=== PATIENT | male | born 1940 | race Caucasian/White ===

== ENCOUNTER → 2019-08-05 14:04 | Outpatient (BNVA) | payer MEDICARE, SELFPAY | PROVIDERS: Family Provider Family Medicine; PCP Family Medicine; Visit Provider Family Medicine | DX: J06.9 Acute upper respiratory infection, unspecified (principal); J30.9 Allergic rhinitis, unspecified | CPT/HCPCS: 87804 ==

== ENCOUNTER → 2019-08-11 15:08 | Outpatient (BNVA) | payer MEDICARE, SELFPAY | PROVIDERS: Family Provider Family Medicine; PCP Family Medicine; Visit Provider Nurse Practitioner Family | DX: R06.02 Shortness of breath (principal); J90 Pleural effusion, not elsewhere classified; I50.9 Heart failure, unspecified; I51.7 Cardiomegaly | CPT/HCPCS: 71046; 80053; 82550; 83880; 84484; 85025 ==

== ENCOUNTER 2019-08-12 18:15 | Inpatient (IN) | payer MEDICARE, SELFPAY ==
[2019-08-12 19:00] VITALS: BP 108/58; PULSE 90; RESP 15; TEMP 36.7; O2SAT 95; BMI 22.4
--- NOTE | 2019-08-12 19:29 | ECG_ITS ---
Measurements Intervals [place] Rate: 81 P: 50 GA: 192 QRS: 8 QRSD: 98 T: 94 QT: 375 QTc: 438 SINUS RHYTHM POSSIBLE LEFT ATRIAL ENLARGEMENT [-0.1mV P WAVE IN V1/V2] SEPTAL MYOCARDIAL INFARCTION , OF INDETERMINATE AGE [40+ ms Q WAVE IN V1/V2] No previous ECG available for comparison Electronically Signed On 08-13-2019 14:12:16 MARKETING SUMMER INTERN by Mil Kee M.D. [id number]
--- NOTE | 2019-08-12 19:29 | XR_ITS ---
WS: [id number] XR chest 1V portable [id number] REASON FOR EXAM: short of breath FINDINGS: There is right pleural effusion similar to the exam of August 11, 2019. The pulmonary niranjan ma has resolved. The heart remains mildly enlarged. The hilum and apices are normal. XR/XR chest 1V portable [id number] IMPRESSION: Resolved pulmonary edema Residual right pleural effusion.
[2019-08-12 20:00] LABS: Basophils % 0.2 %; Eosinophils # 0.1 10^3/uL (0.0-0.8); Eosinophils % 1.4 %; Hematocrit 42.3 % (42.0-52.0); Lymphocytes # 1.5 10^3/uL (0.8-4.8); Mean Corpuscular HGB Conc 30.7 g/dL (30.0-36.0); Mean Corpuscular Hemoglobin 25.8 pg (28.0-34.0); Mean Corpuscular Volume 83.9 fL (80-94); Mean Platelet Volume 9.7 fL (7.4-10.4); Monocytes # 1.2 10^3/uL (0.2-0.9); Monocytes % 11.7 %; Neutrophils # 7.1 10^3/uL (1.8-7.7); Neutrophils % 71.1 %; Nucleated Red Blood Cells % 0 %; Platelet Count 417 10^3/cmm (130-400); Red Blood Count 5.04 10^6/uL (4.1-5.3); Red Cell Distribution Width 15.3 % (12.1-15.1)
--- NOTE | 2019-08-12 20:15 | ED_ITS ---
Entered by Zandra Cordoba, acting as scribe for Aug 12, 2019 18:15 HPI - Recheck/Abnormal Lab/Rx General: Chief Complaint: Recheck/Abnormal Lab/Rx Stated Complaint: abnormal labs Time Seen by Provider: 08/12/19 20:12 Source: patient and family Mode of arrival: ambulatory History of Present Illness: HPI narrative: 79 y/o male presents to the ED for lab recheck. Family states he was having increased LE swelling and saw a provider in [place] who put him on a water pill. He was advised to return if his symptoms did not improve. He went back yesterday and was placed on a different water pill and did some lab work. He also had a chest xray which showed some cardiomegaly. Pt states he has had intermittent SOB, depending on his level of activity, but is unable to lay flat, at all. Family states they were told his trop level was elevated, as well. MD complaint: other (lab recheck/follow-up) Initial visit (ago): day(s) Initial visit for: other (water retension/SOB) Associated symptoms: shortness of breath Review of Systems General: Reports: other (negative unless marked) Const: Denies: fever, chills, body aches, fatigue, malaise or diaphoresis Eyes: Denies: change in vision or blurry vision ENMT: Denies: throat pain, painful swallowing, hoarseness, ear pain, ear discharge, Change in hearing or nasal discharge Resp: Denies: productive cough, non-productive cough, wheezing, coughing up blood or chest congestion GI: Denies: abdominal pain, nausea, vomiting, vomiting blood, coffee grounds in vomit, diarrhea, constipation, cramping, blood in stool or black tarry stool : Denies: flank pain, difficulty urinating, painful urination, urinary frequency, urinary urgency, decreased urine ouput, urinary incontinence or blood in urine Skin/Breast: Denies: rash, skin tenderness or yellow skin Neuro: Denies: headache, numbness in extremities, weakness in extremities, changes in sensation, lack of coordination, difficulty walking, dizziness, vertigo or confusion Endo: Denies: excessive thirst, tired all the time, cold intolerance, excessive sweating, flushing or hot flashes Naveen/Lymph: Denies: easy bruising, easy bleeding, petechiae or enlarged lymph nodes All/Imm: Denies: hives, throat swelling, tongue swelling, facial swelling or acute wheezing PFSH ED PFSH: Medical History (Updated 08/13/19 @ 02:46 by Shelley Persaud) Diabetes mellitus Hyperlipidemia Hypertension Leg edema Social History Smoking and tobacco status: never smoked Physical Exam Const: COMMON NORMALS: no apparent distress, oriented x3, no limitations, healthy appearing and well nourished EXAM LIMITATIONS: no altered mental status GENERAL APPEARANCE: cooperative, well kempt and well developed ORIENTATION/CONSCIOUSNESS: Yes awake HENMT: COMMON NORMALS: normocephalic, head/scalp atraumatic, hearing grossly normal bilaterally, external ears normal, EAC's normal, external nose normal and moist oral mucous membranes HEAD & SCALP: normal to inspection, normocephalic and atraumatic FACE & SINUS: normal facial exam and face symmetric NOSE: external nose normal and nares normal EXTERNAL EAR: Yes external ears normal EXTERNAL AUDITORY CANAL: EAC's normal MOUTH: oral and palatal mucosa normal and tongue normal Eye: COMMON NORMALS: PERRL, EOMs intact bilaterally, conjunctivae normal and no scleral icterus GENERAL EYE: normal appearance of both eyes and normal light reflex CONJUNCTIVA: Yes conjunctivae normal SCLERA: sclerae normal CORNEA: Yes corneas normal PUPIL: Yes PERRL DIRECT OPHTHALMOSCOPY: Yes normal light reflex Neck/C-Spine: COMMON NORMALS: full ROM, no lymphadenopathy, supple, no meningeal signs and no JVD GENERAL: Yes normal visual inspection and Yes trachea midline CERVICAL SPINE: Yes cervical ROM normal Chest: COMMONS NORMALS: inspection of chest normal and palpation of chest normal Resp: COMMON NORMALS: normal respiratory effort, no retractions, no use of accessory muscles and clear to auscultation bilaterally EFFORT & INSPECTION: Yes able to speak in complete sentences AUSCULTATION: clear to auscultation bilaterally Cardio: COMMON NORMALS: no JVD, regular rate, regular rhythm, S1 normal heart sound, S2 normal heart sound, no gallops, no clicks, no murmurs and no rub JUGULAR VENOUS DISTENTION: no JVD RATE: regular rate RHYTHM: regular rhythm HEART SOUNDS: S1 normal and S2 normal GI: COMMON NORMALS: soft to palpation, non-tender, no hepatosplenomegaly and no masses INSPECTION: Yes normal to inspection PALPATION: Yes soft and Yes no hepatosplenomegaly : COMMON NORMALS: Yes no CVA tenderness BLADDER/KIDNEY EXAM: Yes no CVA tenderness Back/Pelvis: COMMON NORMALS: no CVA tenderness, thoracic and lumbar spine normal to inspection, no thoracic nor lumbar tenderness and thoraco-lumbar ROM normal Neuro: COMMON NORMALS: oriented x3, CN's II-XII intact bilaterally, moves all extremities, no focal motor deficits and no sensory deficits noted MENINGEAL SIGNS: Yes no meningeal signs Psych: COMMON NORMALS: mental status grossly normal, thought process normal, cooperative, affect normal, speech normal and activity/motor behavior normal APPEARANCE: Yes well kempt SPEECH: Yes normal speech THOUGHT PROCESS: normal thought process Skin: COMMON NORMALS: no rashes or lesions noted, skin turgor normal, no jaundice, no petechiae and no mottling GENERAL SKIN EXAM: no rashes or lesions noted and turgor normal Course Vital Signs: Vital signs: Vital Signs Temperature 98.5 F 08/13/19 00:00 Pulse Rate 84 08/13/19 00:00 Respiratory Rate 18 08/13/19 00:00 Blood Pressure 104/79 08/13/19 00:00 Pulse Oximetry 98 08/13/19 00:00 MDM - Recheck/Abnormal Lab/Rx MDM Narrative: Medical decision making narrative: Mr. Granger is a nice 79-year-old male who comes in with increased leg swelling and edema and shortness of breath with orthopnea. The symptoms are new over the past few days. Patient has not had this problem before. Appears as though he has new onset congestive heart failure and possibly an NSTEMI. The case was endorsed to Dr. Santizo and she is agreeable to admission. Lab Data: Attestation: I reviewed the patient's lab results. Labs: Lab Results 08/12/19 08/12/19 08/12/19 Range/Units 19:45 19:45 19:45 WBC 10.0 (4.0-10.0) 10^3/ uL RBC 5.04 (4.1-5.3) 10^6/u L Hgb 13.0 (11.7-16.6) g/dL Hct 42.3 (42.0-52.0) % MCV 83.9 (80-94) fL MCH 25.8 L (28.0-34.0) pg MCHC 30.7 (30.0-36.0) g/dL RDW 15.3 H (12.1-15.1) % Plt Count 417 H (130-400) 10^3/c mm MPV 9.7 (7.4-10.4) fL Neut % (Auto) 71.1 % Lymph % (Auto) 15.0 % [place] % (Auto) 11.7 % Eos % (Auto) 1.4 % Baso % (Auto) 0.2 % Neut # (Auto) 7.1 (1.8-7.7) 10^3/u L Lymph # (Auto) 1.5 (0.8-4.8) 10^3/u L [place] # (Auto) 1.2 H (0.2-0.9) 10^3/u L Eos # (Auto) 0.1 (0.0-0.8) 10^3/u L Baso # (Auto) 0.0 (0.0-0.1) 10^3/u L Nucleated RBC % (a uto) 0 % Nucleated RBCs # 0.0 /100WBC Sodium 132 L (136-145) mmol/L Potassium 5.4 H (3.5-5.1) mmol/L Chloride 96 L (98-107) mmol/L Carbon Dioxide 24 (22-29) mmol/L Anion Gap 17.4 (5-19) BUN 51 H (8-23) mg/dL Creatinine 2.1 H (0.7-1.2) mg/dL Glucose 198 H (65-115) mg/dL Calcium 9.9 (8.5-10.5) mg/dL Total Bilirubin 0.8 (0.15-1.2) mg/dL AST 36 (0-40) U/L ALT 26 (0-41) U/L Alkaline Phosphata se 71 (40-130) IU/L Troponin T Baselin e 127 H* (0-15) ng/mL NT-Pro-B Natriuret Pep 37184 H (0-450) pg/mL Total Protein 7.1 (6.6-8.7) g/dL Albumin 3.7 (3.5-5.2) g/dL Globulin 3.4 (1.3-4.6) g/dL Imaging Data^: CXR: Attestation: I personally reviewed and interpreted this imaging study as follows: My impression: Cardiomegaly with right-sided pleural effusion. EKG Data^: EKG 1: Attestation: I personally reviewed and interpreted this EKG as follows: EKG interpretation date: 08/12/19 EKG interpretation time: 20:52 Interpretation: Normal sinus rhythm at 81 beats a minute, normal axis, normal intervals, no blocks, Q waves anteriorly are, T wave inversions laterally with ST segment depression in V5 and V6. No old for comparison. Discharge Plan Discharge Patient Disposition: Admitted As Inpatient Admit Provider: Margret Santizo Discharge Date/Time: 08/13/19 00:15 Coding Level of Care Code ED Highway Maintenance Supervisor for Chg Fwd Exam Comprehensive The documentation recorded by the Adalid calderon Ashley, accurately reflects the service I personally performed and the decisions made by Cori gonsalves Eli N Aug 12, 2019 18:15
[2019-08-12 20:17] LABS: Alanine Aminotransferase 26 U/L (0-41); Albumin Level 3.7 g/dL (3.5-5.2); Alkaline Phosphatase 71 IU/L (40-130); Anion Gap 17.4 (5-19); Aspartate Amino Transferase 36 U/L (0-40); Blood Urea Nitrogen 51 mg/dL (8-23); Calcium 9.9 mg/dL (8.5-10.5); Carbon Dioxide 24 mmol/L (22-29); Chloride 96 mmol/L (98-107); Globulin 3.4 g/dL (1.3-4.6); Glucose 198 mg/dL (65-115); Potassium 5.4 mmol/L (3.5-5.1); Sodium 132 mmol/L (136-145); Total Bilirubin 0.8 mg/dL (0.15-1.2); Total Protein 7.1 g/dL (6.6-8.7)
[2019-08-12 20:22] LABS: Troponin(5th) Baseline 127 ng/mL (0-15)
--- NOTE | 2019-08-12 20:30 | PC.NURSE ---
Patient states he only becomes short of breath during exertion
[2019-08-12 20:49] LABS: NT Pro B Type Natriuretic Pept 40232 pg/mL (0-450)
--- NOTE | 2019-08-12 21:29 | ECG_ITS ---
Measurements Intervals [place] Rate: 84 P: 48 ME: 188 QRS: -10 QRSD: 97 T: 123 QT: 363 QTc: 432 SINUS RHYTHM LEFT ATRIAL ENLARGEMENT [-0.15mV P WAVE IN V1/V2] ANTEROSEPTAL MYOCARDIAL INFARCTION [40+ ms Q WAVE IN V1-V4], OF INDETERMINATE AGE WARNING: DATA QUALITY MAY AFFECT INTERPRETATION No previous ECG available for comparison Electronically Signed On 08-13-2019 14:14:30 APPRENTICE COOK by Mil Kee M.D. [id number]
--- NOTE | 2019-08-12 21:49 | PC.NURSE ---
EKG done at 2145 and shown to ER doctor
[2019-08-12 23:24] LABS: Troponin 5 2HR Delta 0.5 ABS# (0-10)
[2019-08-12 23:26] LABS: Troponin 5 2HR 127.5 ng/mL (0-15)
[2019-08-12 23:42] VITALS: BP 108/72; PULSE 86; RESP 18; O2SAT 96
[2019-08-13] VITALS (94 sets, daily range): BP systolic 101–117; BP diastolic 74–89; PULSE 24–101; RESP 16–32; TEMP 36.7–37; O2SAT 94–99
--- NOTE | 2019-08-13 00:13 | P.HP_ITS ---
Providers/Chief Complaint Admitting Physician: Margret Santizo MD Primary Care Provider: Julisa Chilel MD Chief Complaint: ELEVATED TROPONIN PER DERIC NEFF History of Present Illness Isaiah Granger is a 79 year old male with a past medical history of hypertension, diabetes, allergic rhinitis who has recently developed worsening lower extremity swelling over the past week. Patient reports that over the past 2 to 3 months he has been experiencing generalized weakness, feeling weaker than usual and in has been developing poor exercise capacity together with lower extremity swelling. Over the past week his lower extremity swelling increased significantly in size. He also noticed a worsening in his dyspnea. While at a baseline [place], at this present time he he reports only being able to ambulate in a small hallway before feeling short of breath. His daughters at bedside also have noticed him to become more winded on attempting to talk in long sentences. Family has also noticed him sleeping in a recliner on more than one occasion over the past 1 week. It is hard to get an exact history from the patient, however he states that this was more to elevate his legs rather than because of shortness of breath. He was recently evaluated in his primary care provider's office for the above symptoms. Initially he was started on a combination of lisinopril and hydrochlorothiazide last week on August 05. This was changed to Lasix 20 mg twice daily on the . Since starting these medications he had noticed an improvement in his lower extremity edema. As part of his work-up labs were drawn on the as an outpatient which showed an [place] [address] therefore he was referred to the emergency room. At this present time he denies any complaints of chest pain. He denies any episodes of chest pain in the past. He states that the onset of symptoms some 2 to 3 months ago all he remembers is having a URI with productive cough which has improved however still with some persistent cough. Diagnostics in the ER are notable for BUN 41, creatinine of 2.1(baseline of 1.8 from 05/2019), baseline troponin of 127, 2-hour troponin of 127.5 with a delta of 0.5, BNP 08237. EKG shows a sinus rhythm of 78 bpm without any acute ST-T wave changes. Chest x-ray with a right pleural effusion and mild congestive changes in the perihilar areas. He is currently saturating 98% on room air. Blood pressure is 104/79 with a heart rate of 84. He appears comfortable at time of exam. No past h/o CAD Review of Systems General: Reports: 10 or more systems reviewed and unremarkable except in HPI and below Const: Denies: fever, chills or body aches Eyes: Denies: change in vision, blurry vision or photophobia ENMT: Reports: hoarseness; Denies: throat pain, enlarged tonsils, painful swallowing or nasal congestion Card: Reports: edema, swelling of feet/ankles, shortness of breath on exertion and shortness of breath when lying down; Denies: chest pain, palpitations, irregular heart rhythm, lightheadedness or pre-syncope Resp: Reports: shortness of breath and non-productive cough; Denies: productive cough, wheezing, stridor, pain on inspiration, change in phlegm color, coughing up blood or chest congestion GI: Denies: abdominal pain, nausea, vomiting, vomiting blood, coffee grounds in vomit, difficulty swallowing, heartburn/indigestion, diarrhea, constipation, cramping, change in stool character, blood in stool or black tarry stool : Denies: flank pain, painful urination, urinary frequency, urinary urgency, urinary hesitancy or blood in urine Musc: Denies: neck pain, back pain, extremity pain, joint swelling, joint warmth or deformity Neuro: Denies: headache, numbness in extremities, weakness in extremities, changes in sensation, difficulty walking, frequent falls, dizziness, vertigo, behavioral changes, slurred speech or seizure-like activity Psych: Denies: anxiety, depression, suicidal ideation or homicidal ideation Endo: Denies: excessive urination, excessive thirst, tired all the time, cold intolerance or hot flashes Naveen/Lymph: Denies: easy bruising or easy bleeding Medications/Allergies Allergies Allergy/AdvReac Type Severity Reaction Status Date / Time No Known Allergies Allergy Verified 08/11/19 15:23 PFSH Acute PFSH: Medical History Diabetes mellitus Hyperlipidemia Hypertension Social History Smoking and tobacco status: never smoked Vitals/I&O/Wt Last Vital Signs Temp 98.0 F 08/12/19 19:00 Pulse 86 08/12/19 23:42 Resp 18 08/12/19 23:42 BP 108/72 08/12/19 23:42 Pulse Ox 96 08/12/19 23:42 Weight last 48 hrs Weight 70.76 kg Physical Exam Narrative: EXAM NARRATIVE: GEN: Awake, alert and oriented, no acute distress CVS: S1S2 N, disatolic murmur+ RS: CTA B/L except reduced air entry R infraaxillary area. Abd: Soft, nt/nd , bs+ DIRECTOR PACKAGING: no focal neuro deficits EXT: 2+ pitting edema B/L lower extremities Data : 08/13/19 01:30 08/13/19 01:30 A&P Assessment and plan (1) Hyperlipidemia: Status: Acute Code(s): E78.5 - Hyperlipidemia, unspecified (2) Diabetes mellitus: Status: Acute Code(s): E11.9 - Type 2 diabetes mellitus without complications (3) Hypertension: Status: Acute Code(s): I10 - Essential (primary) hypertension (4) Diabetes mellitus: Status: Acute Code(s): E11.9 - Type 2 diabetes mellitus without complications (5) Leg edema: Status: Acute Code(s): R60.0 - Localized edema Additional A&P Information Admit to [facility] 1. B/L lower extremity edema Given presentation with dyspnea, orthopnea, cough, rales, pulmonary congestion on chest x-ray, elevated troponins and BNP suspect heart failure of unclear chronicity-Per patient history symptoms were more subacute over the past 2 to 3 months with acute worsening over the past week. Start Lasix 40 mg IV daily, to be adjusted based on urine output creatinine and improvement in edema. Obtain echocardiogram to ascertain EF, systolic and diastolic function, valvular function. Troponins are elevated today however suspect this is more likely related to CHF. Patient has no current ongoing chest pain or acute ST-T wave changes to suggest acute coronary syndrome. LFTs are within normal range. Will obtain albumin with morning labs. Suspect cardiorenal syndrome to be the cause of worsening creatinine and less likely a primary renal abnormality. Will obtain UA for initial work-up. Patient denies any past history of known CAD however he does have significant risk factors by way of hypertension and diabetes mellitus. Currently on aspirin 81 mg daily as primary prevention. 2. Hypertension continue lisinopril 10 mg daily 3. Diabetes mellitus insulin sliding scale for now DVT ppx: lovenox Full code Attestations Medical Necessity Statement*: Anticipate greater than 2 midnight admission for the work-up and management of possible newly diagnosed CHF. Coding Level of Care Code Acute Software Packager for [facility] Fwd Diagnoses Hyperlipidemia E78.5 Diabetes mellitus E11.9 Hypertension I10 Diabetes mellitus E11.9 Leg edema R60.0
--- NOTE | 2019-08-13 00:50 | PC.NURSE ---
Received patient from the emergency room via wheelchair. Patient is alert and oriented to person, place, time, situation. Patient denies pain at this time. Family at the patient's bedside. Patient has pitting edema in the bilateral lower extremities. Pedal pulses palpable 3+ in bilateral lower extremities. business reporting developer completed per flow sheet. Call light within reach. Care Continued.
--- NOTE | 2019-08-13 01:29 | ECG_ITS ---
Measurements Intervals [place] Rate: 78 P: 50 AL: 187 QRS: -1 QRSD: 98 T: 117 QT: 391 QTc: 448 SINUS RHYTHM POSSIBLE LEFT ATRIAL ENLARGEMENT [-0.1mV P WAVE IN V1/V2] ANTEROSEPTAL MYOCARDIAL INFARCTION [40+ ms Q WAVE IN V1-V4], OF INDETERMINATE AGE No previous ECG available for comparison Electronically Signed On 08-13-2019 14:15:45 EXTRACTOR PULLER by Mil Kee M.D. [id number]
[2019-08-13 01:42] LABS: Basophils % 0.2 %; Eosinophils # 0.2 10^3/uL (0.0-0.8); Hematocrit 42.6 % (42.0-52.0); Hemoglobin 13.3 g/dL (11.7-16.6); Lymphocytes # 1.8 10^3/uL (0.8-4.8); Lymphocytes % 17.3 %; Mean Corpuscular HGB Conc 31.2 g/dL (30.0-36.0); Mean Corpuscular Hemoglobin 26.1 pg (28.0-34.0); Mean Corpuscular Volume 83.7 fL (80-94); Mean Platelet Volume 9.9 fL (7.4-10.4); Monocytes # 1.4 10^3/uL (0.2-0.9); Monocytes % 12.9 %; Neutrophils # 7.1 10^3/uL (1.8-7.7); Neutrophils % 67.1 %; Nucleated Red Blood Cells % 0 %; Platelet Count 407 10^3/cmm (130-400); Red Blood Count 5.09 10^6/uL (4.1-5.3); Red Cell Distribution Width 15.3 % (12.1-15.1); White Blood Count 10.6 10^3/uL (4.0-10.0)
[2019-08-13 01:56] LABS: Troponin 5 6HR 126.9 ng/mL (0-15); Troponin 5 6HR Delta -0.1 ng/L (0-12)
--- NOTE | 2019-08-13 02:34 | USCV_ITS ---
Isaiah Granger Age: 79 Gender: M : 1940 Exam Date: 08/13/2019 06:15 Ordering Phys: Margret Santizo MD Technologist: Radha Lamb Exam Location: [facility] – [place] Indication: NEW ONSET CHF BP: 101 / 74 HR: 79 Rhythm: Sinus Technical Quality: Good MEASUREMENTS (Male / Female) Normal Values 2D ECHO LV Diastolic Diameter PLAX 5.7 cm 4.2 - 5.9 / 3.9 - 5.3 cm LV Systolic Diameter PLAX 5.1 cm IVS Diastolic Thickness 0.9 cm 0.6 - 1.0 / 0.6 - 0.9 cm IVS Systolic Thickness 1.1 cm LVPW Diastolic Thickness 1.3 cm 0.6 - 1.0 / 0.6 - 0.9 cm LVPW Systolic Thickness 1.4 cm LVOT Diameter 2.0 cm LV Ejection Fraction 2D Teich 22.4 % LV Ejection Fraction MOD 2C 20.9 % LV Ejection Fraction 2C AL 21.8 % LA Diameter 4.2 cm LA Width 4.6 cm LA Height 6.3 cm RA Width 4.9 cm RA Height 6.0 cm Aorta at Sinotubular Diameter 3.2 cm M-MODE LV Diastolic Diameter MM 6.7 cm 4.2 - 5.9 / 3.9 - 5.3 cm LV Systolic Diameter MM 6.1 cm LV Ejection Fraction MM Teich 19.6 % IVS Diastolic Thickness MM 1.2 cm 0.6 - 1.0 / 0.6 - 0.9 cm IVS Systolic Thickness MM 1.2 cm LVPW Diastolic Thickness MM 1.1 cm 0.6 - 1.0 / 0.6 - 0.9 cm LVPW Systolic Thickness MM 1.3 cm Aortic Annulus Diameter 2.7 cm LA Ao Ratio MM 1.6 MV E Point Septal Separation 1.9 cm DOPPLER AV Peak Velocity 269.0 cm/s LVOT Peak Velocity 54.0 cm/s AV Area Cont Eq vti 0.6 cm squared AV Area Cont Eq pk 0.7 cm squared MV Area PHT 4.4 cm squared Mitral E to A Ratio 1.5 MV E' Velocity 4.0 cm/s Mitral E to MV E' Ratio 20.1 Mitral E to LV E' Lateral Ratio 19.7 Mitral E to LV E' Septal Ratio 20.6 TR Peak Velocity 279.9 cm/s TR Peak Gradient 31.3 mmHg TR Mean Velocity 195.0 cm/s TR Mean Gradient 17.3 mmHg TR Velocity Time Integral 97.5 cm TV Peak E Velocity 33.0 cm/s Right Atrial Pressure 3.0 mmHg Pulmonary Artery Systolic Pressu 34.3 mmHg PV Peak Velocity 63.0 cm/s RV Acceleration Time 0.1 s RV Ejection Time 0.3 s RV AcT/ET 0.3 FINDINGS Left Ventricle Dilated left ventricular cavity size. Severely decreased left ventricular systolic function. Left ventricular ejection fraction is estimated at 20 %. Severe global hypokinesis with relative sparing of basal inferolateral wall. Grade II diastolic dysfunction, moderately elevated filling pressures. Right Ventricle Right ventricle not well visualized. Possibly normal right ventricular size and systolic function. Right ventricular systolic pressure 39 mmHg. Right Atrium Mildly increased right atrial size. Right atrial pressure estimated at 8 mmHg. Left Atrium Moderately increased left atrial size. Mitral Valve Severe mitral annular calcification. Moderately thickened mitral valve. No mitral valve stenosis. Mild mitral valve regurgitation. Aortic Valve Markedly thickened and calcified trileaflet aortic valve. Immobile right coronary cusp. Possibly low gradient severe aortic valve stenosis, peak velocity 2.7 m/s, peak gradient 29 mmHg, mean gradient 16.4 mmHg, [place] 0.58 cm squared. Visually aortic valve appears to have severe aortic stenosis. Mild aortic valve regurgitation. Tricuspid Valve Thickened tricuspid valve. No tricuspid valve stenosis. Mild tricuspid valve regurgitation. Pulmonic Valve Structurally normal pulmonic valve. No pulmonary valve stenosis. [id number] pulmonary valve regurgitation. Pericardium No pericardial effusion. Aorta Normal-sized aortic root. CONCLUSIONS 1. Dilated left ventricular cavity size. Severely decreased left ventricular systolic function. Left ventricular ejection fraction is estimated at 20 %. Severe global hypokinesis with relative sparing of basal inferolateral wall. Grade II diastolic dysfunction, moderately elevated filling pressures. 2. Possibly normal right ventricular size and systolic function. 3. Mild pulmonary hypertension with pulmonary artery pressure estimated at 39 mmHg. 4. Possibly low gradient severe aortic valve stenosis, peak velocity 2.7 m/s, peak gradient 29 mmHg, mean gradient 16.4 mmHg, [place] 0.58 cm squared. Visually aortic valve appears to have severe aortic stenosis. Mild aortic valve regurgitation. 5. [id number] pulmonary valve regurgitation. 6. No prior similar studies to compare. Lilo Tovar MD (Electronically Signed) Final Date: 13 August 2019 12:45 S
[2019-08-13 03:15] LABS: Alanine Aminotransferase 27 U/L (0-41); Albumin Level 3.4 g/dL (3.5-5.2); Alkaline Phosphatase 66 IU/L (40-130); Anion Gap 22.1 (5-19); Aspartate Amino Transferase 37 U/L (0-40); Blood Urea Nitrogen 42 mg/dL (8-23); Calcium 10.1 mg/dL (8.5-10.5); Carbon Dioxide 21 mmol/L (22-29); Chloride 97 mmol/L (98-107); Chol HDL Ratio 7.12 mg/dL (1.0-5.00); Cholesterol 178 mg/dL (0-200); Globulin 3.9 g/dL (1.3-4.6); Glucose 203 mg/dL (65-115); HDL Cholesterol 25 mg/dL (60-100); LDL Cholesterol Calculated 119 mg/dL (50-129); LDL HDL Ratio 4.76 RATIO (0.00-3.22); Potassium 5.1 mmol/L (3.5-5.1); Sodium 135 mmol/L (136-145); Total Bilirubin 0.8 mg/dL (0.15-1.2); Total Protein 7.3 g/dL (6.6-8.7); Triglycerides 170 mg/dL (0-150)
[2019-08-13 03:17] LABS: Estmated Average Glucose 197; Hemoglobin A1C 8.5 % (4.0-6.0)
[2019-08-13] MEDS: FUROsemide 10 mg/mL SDV 4mL 40 MG IVP (06:24)
[2019-08-13] MEDS: enoxaparin 40 mg/0.4 mL Syringe SUBCUT (06:26)
--- NOTE | 2019-08-13 07:55 | PC.NURSE ---
patient weight 168.6, height 5'10
[2019-08-13 08:02] LABS: Glucose Point of Care 150 mg/dL (70-110)
[2019-08-13] MEDS: pantoprazole DR 40 mg Tablet PO (08:32)
[2019-08-13] MEDS: aspirin 81 mg EC Tablet PO (08:32)
--- NOTE | 2019-08-13 08:47 | US_ITS ---
WS: [id number] Examination: Renal ultrasound HISTORY: Recurrent urination FINDINGS: The right kidney measures 10.54 x 5.3 x 4.96 cm. The cortex measured 1.24 cm. There is no hydronephrosis there is no stones seen. The left kidney measured 10.56 x 5.19 x 4.21 cm. Cortex measured 1.4 cm no stones are hydronephrosis. The aorta measured 1.64 cm show no aneurysms. The urinary bladder was smooth in outline with no lesions identified. No definite wall thickness. The prostate measures 6.59 x 4.63 cm showed hypertrophic changes no definite tumors are identified. US/US renal BI with bladder Impression: 1. Normal kidneys. 2. 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
[2019-08-13 09:15] LABS: Thyroid Stimulating Hormone 6.98 uIU/mL (0.27-4.20)
--- NOTE | 2019-08-13 10:05 | PC.CHAP ---
Pastoral Care Encounter/Spiritual Assessment Type of Contact [] Declined adjunct psychology faculty member visit [] Patient/Family/Request visit [] Outpatient visit [] Follow-up visit [] Physician referral [] Code/Alert [x] Routine visit [] Staff referral [] Actively dying [] Patient sleeping [] Family support [] [] Out of room [] Palliative care [] [] Receiving care in room [] Pre-surgical visit [] Trauma [] Long length of stay [] ICU visit [] Other: Relational/Emotional Strength [] Patient feels connected with others/family/visitors/staff [] Distress [] Loneliness/isolation [] Abandonment Spirituality of Patient [x] Person of Yojana [] Attends Islam of their Yojana [x] Believes in Prayer [] Reads Bible or Amish materials [] There are Spiritual issues to be addressed Buildings And Grounds Director Interventions [x] Prayer [] Active listening [] Non-anxious presence [] Spiritual/emotional support [] Crisis/trauma care [] Spiritual counseling [] Bereavement support [] Provided bereavement packet [] Provided Bible/devotional materials [] Provided toy/stuffed animal, coloring book to patient or family member [] Provided Communion [] Anointing/[place] [] Salvation [x] Completed spiritual assessment [] Other: Impact on Illness or Injury [] Angry [] Fearful [] Anxious [] Often cries [] Exhaustion [] Unable to work [] Unable to attend muslim [] Unable to walk/stand [] Unable to read [] Unable to drive [] Unable to eat/drink [] Unable to sleep [] Unable to be with family [] Patient intubated [] Other: Summary Patient's daughter present. Time spent with patient 10min
[2019-08-13 12:00] LABS: Glucose Point of Care 104 mg/dL (70-110)
--- NOTE | 2019-08-13 13:58 | PM.CONSULT ---
Providers/Reason For Consult Consulting Physican/Specialty*: Dr. Tovar, Cardiology Reason for Consult*: CHF Attending Physician: Maynor Fletcher Primary Care Provider: Julisa Chilel MD History of Present Illness History of Present Illness Isaiah Granger is a 79 year old male with past medical history of hypertension, diabetes x 15 years, allergic rhinitis and murmur who presented for worsening lower extremity swelling and shortness of breath for past 2-3 weeks. His daughter and son in law at bedside at the time of evaluation.He also complains of cough productive of whitish-greyish sputum for past several days. He was recently evaluated in Dr. Chilel's office for the above symptoms. He was started on hydrochlorothiazide- triameterene (25-37.5 mg) last week on August 05 and was changed to Lasix 20 mg twice daily on the in the absence of improvement. His labs showed an elevated troponin and BNP~ [id number] and he was sent to the emergency room. CXR showed right pleural effusion and pulmonary congestion. He was started on lasix. His echocardiogram showed left ventricular systolic function of 20% and hence I have been asked to evaluate the patient. Review of Systems Const: Denies: fever, chills, change in appetite, change in weight, fatigue or malaise Eyes: Denies: change in vision or eye discharge ENMT: Denies: throat pain, swelling of lips/tongue, oral sores/lesions, bleeding gums, nasal congestion, nose bleeds or post nasal drip Card: Reports: edema and shortness of breath on exertion; Denies: chest pain, palpitations, irregular heart rhythm, lightheadedness, syncope, shortness of breath when lying down or leg pain with exertion Resp: Reports: shortness of breath and productive cough (greyish phlegm); Denies: wheezing or coughing up blood GI: Reports: feeling full early; Denies: abdominal pain, nausea, vomiting, vomiting blood, heartburn/indigestion, diarrhea, constipation, change in bowel habits, blood in stool or black tarry stool : Denies: painful urination, decreased urine ouput, blood in urine or scrotal swelling Musc: Reports: extremity swelling; Denies: back pain, joint pain or muscle weakness Skin/Breast: Denies: rash, redness, new lesion or change in hair Neuro: Denies: numbness in extremities, weakness in extremities, lack of coordination, difficulty walking, dizziness, vertigo or confusion Psych: Denies: anxiety, depression, irritability, suicidal ideation or homicidal ideation Endo: Denies: tired all the time, cold intolerance or heat intolerance Naveen/Lymph: Denies: easy bruising, easy bleeding, petechiae or purpura All/Imm: Denies: throat swelling, tongue swelling or acute wheezing Meds/Allergies Home Medications and Allergies Home Medications Medication Instructions Recorded Confirmed Type aspirin 81 mg tablet,delayed 81 mg PO DAILY 08/05/19 08/13/19 History release glimepiride 4 mg tablet 4 mg PO DAILY 08/05/19 08/13/19 History lisinopril 10 mg tablet 10 mg PO DAILY 08/05/19 08/13/19 History omega-3 fatty acids-vitamin E 1,000 mg PO DAILY cap 08/05/19 08/13/19 History 1,000 mg capsule omeprazole 40 mg capsule,delayed 40 mg PO DAILY 08/05/19 08/13/19 History release sitagliptin 100 mg tablet 100 mg PO DAILY 08/05/19 08/13/19 History Allergies Allergy/AdvReac Type Severity Reaction Status Date / Time No Known Allergies Allergy Verified 08/11/19 15:23 Current Medications Current Medications Generic Name Dose Route Start Last Admin Trade Name Torin PRN Reason Stop Dose Admin Aspirin 81 mg 08/13/19 09:00 08/13/19 08:32 Aspirin Ec PO 81 mg DAILY MEGAN Administration Insulin Aspart 0 unit 08/13/19 08:00 08/13/19 12:00 Novolog SUBCUT Not Given WM&BEDTIME MEGAN Protocol Pantoprazole Sodium 40 mg 08/13/19 09:00 08/13/19 08:32 Protonix PO 40 mg DAILY MEGAN Administration PFSH Acute PFSH: Social History Smoking and tobacco status: never smoked Vitals/I&O/Wt Last Vital Signs Temp 98.1 F 08/13/19 04:00 Pulse 85 08/13/19 12:00 Resp 25 H 08/13/19 12:00 BP 107/74 08/13/19 12:00 Pulse Ox 94 08/13/19 11:19 08/12/19 08/13/19 08/13/19 22:59 06:59 14:59 Intake Total 125 / 125 680 / 680 Output Total 350 / 350 500 / 500 Balance -225 / -225 180 / 180 Weight last 48 hrs Weight 156 lb Physical Exam Const: COMMON NORMALS: no apparent distress, average body habitus, oriented x3, alert and well nourished GENERAL APPEARANCE: cooperative, comfortable, well kempt and well developed ORIENTATION/CONSCIOUSNESS: Yes oriented to person, Yes oriented to place and Yes oriented to time HENMT: COMMON NORMALS: normocephalic, head/scalp atraumatic, hearing grossly normal bilaterally, external ears normal, external nose normal, moist oral mucous membranes and oropharynx normal HEAD & SCALP: normocephalic and atraumatic FACE & SINUS: face symmetric NOSE: external nose normal EXTERNAL EAR: Yes external ears normal MOUTH: oral and palatal mucosa normal Eye: COMMON NORMALS: PERRL, EOMs intact bilaterally and conjunctivae normal CONJUNCTIVA: Yes conjunctivae normal SCLERA: sclerae normal PUPIL: Yes PERRL Neck/C-Spine: COMMON NORMALS: no lymphadenopathy and supple; negative for no carotid bruits Resp: COMMON NORMALS: normal respiratory effort, no use of accessory muscles, clear to auscultation bilaterally and percussion normal EFFORT & INSPECTION: Yes able to speak in complete sentences, No tachypneic, No pursed lip breathing, No labored and No audible wheezes AUSCULTATION: clear to auscultation bilaterally, no crackles, no rales, no rhonchi and no wheezes PERCUSSION: percussion normal Cardio: COMMON NORMALS: regular rate, regular rhythm, S1 normal heart sound, S2 normal heart sound and peripheral pulses 2+ throughout; negative for no gallops and negative for no clicks JUGULAR VENOUS DISTENTION: JVD positive to the level of the angle of the jaw PALPATION: normal PMI, no heave, no palpable S3, no palpable S4 and no thrill RATE: regular rate RHYTHM: regular rhythm HEART SOUNDS: S1 normal, S2 normal, no click, no gallops and murmur PERIPHERAL PULSES: pulses 2+ throughout GI: COMMON NORMALS: normal to inspection, nondistended, normoactive bowel sounds, soft to palpation and non-tender PALPATION: Yes soft PERCUSSION: tympanic to percussion RECTAL EXAM: Yes deferred Back/Pelvis: LUMBAR SPINE/LOWER BACK: Yes normal to inspection Neuro: COMMON NORMALS: oriented x3, no focal motor deficits and gait normal SENSORIUM/ORIENTATION: Yes alert, Yes oriented to person, Yes oriented to place and Yes oriented to time CRANIAL NERVES: Yes CN normal except as noted Psych: COMMON NORMALS: thought process normal APPEARANCE: Yes well kempt MOOD & AFFECT: Yes euthymic mood THOUGHT PROCESS: normal thought process THOUGHT CONTENT: Yes normal thought content ATTENTION/CONCENTRATION: Yes attention grossly intact MEMORY/COGNITION: Yes memory grossly intact INSIGHT: insight good JUDGEMENT: judgment good Data Imaging^: Echo: I personally reviewed and interpreted this imaging study as follows: My impression: CONCLUSIONS 1. Dilated left ventricular cavity size. Severely decreased left ventricular systolic function. Left ventricular ejection fraction is estimated at 20 %. Severe global hypokinesis with relative sparing of basal inferolateral wall. Grade II diastolic dysfunction, moderately elevated filling pressures. 2. Possibly normal right ventricular size and systolic function. 3. Mild pulmonary hypertension with pulmonary artery pressure estimated at 39 mmHg. 4. Possibly low gradient severe aortic valve stenosis, peak velocity 2.7 m/s, peak gradient 29 mmHg, mean gradient 16.4 mmHg, LEXIS 0.58 cm squared. Visually aortic valve appears to have severe aortic stenosis. Mild aortic valve regurgitation. 5. [id number] pulmonary valve regurgitation. 6. No prior similar studies to compare EKG^: EKG 1: I personally reviewed and interpreted this EKG as follows: My Interpretation: SINUS RHYTHM LEFT ATRIAL ENLARGEMENT [-0.15mV P WAVE IN V1/V2] ANTEROSEPTAL MYOCARDIAL INFARCTION [40+ ms Q WAVE IN V1-V4], OF INDETERMINATE AGE No previous ECG available for comparison Other Data: Other data: Laboratory Tests 08/11/19 08/11/19 08/12/19 16:00 16:00 19:45 Potassium 5.6 H 5.4 H BUN 38 H 51 H Creatinine 2.0 H 2.1 H Hemoglobin A1c Calcium Total Bilirubin AST ALT Alkaline Phosphata se Troponin I 6 Hour Troponin T Gen 5 n g/L 109 H* Troponin T Baselin e Troponin T 120 Min [place] NT-Pro-B Natriuret Pep 02536 H 09558 H Total Protein Albumin Globulin Triglycerides Cholesterol LDL Cholesterol, C alc HDL Cholesterol TSH 08/12/19 08/12/19 08/13/19 19:45 21:35 01:30 Potassium BUN Creatinine Hemoglobin A1c Calcium Total Bilirubin AST ALT Alkaline Phosphata se Troponin I 6 Hour 126.9 H Troponin T Gen 5 n g/L Troponin T Baselin e 127 H* Troponin T 120 Min [place] 127.5 H NT-Pro-B Natriuret Pep Total Protein Albumin Globulin Triglycerides Cholesterol LDL Cholesterol, C alc HDL Cholesterol TSH 08/13/19 08/13/19 08/13/19 01:30 01:30 01:30 Potassium BUN Creatinine Hemoglobin A1c 8.5 H Calcium 10.1 Total Bilirubin 0.8 AST 37 ALT 27 Alkaline Phosphata se 66 Troponin I 6 Hour Troponin T Gen 5 n g/L Troponin T Baselin e Troponin T 120 Min [place] NT-Pro-B Natriuret Pep Total Protein 7.3 Albumin 3.4 L Globulin 3.9 Triglycerides 170 H Cholesterol 178 LDL Cholesterol, C alc 119 HDL Cholesterol 25 L TSH 08/13/19 01:30 Potassium BUN Creatinine Hemoglobin A1c Calcium Total Bilirubin AST ALT Alkaline Phosphata se Troponin I 6 Hour Troponin T Gen 5 n g/L Troponin T Baselin e Troponin T 120 Min [place] NT-Pro-B Natriuret Pep Total Protein Albumin Globulin Triglycerides Cholesterol LDL Cholesterol, C alc HDL Cholesterol TSH 6.98 H A&P Assessment and plan (1) Systolic CHF, acute: Newly diagnosed CHF. LVEF=20%. -continue IV lasix. UO not documented properly. -possibly start on low dose coreg tomorrow. -Add ACEI/ARB/ARNI later based on renal function. -Plan for LHC/stress test once patient is more euvolemic and based on renal function. Status: Acute Code(s): I50.21 - Acute systolic (congestive) heart failure (2) Aortic stenosis: Possible Low flow low gradient severe on echo. He would benefit from DSE to differentiate from pseudo . Status: Acute Qualifiers: Cardiac valve disease etiology: nonrheumatic Qualified Code(s): I35.0 - Nonrheumatic aortic (valve) stenosis Code(s): I35.0 - Nonrheumatic aortic (valve) stenosis (3) Hypertension: BP running normal. Status: Acute Qualifiers: Hypertension type: essential hypertension Qualified Code(s): I10 - Essential (primary) hypertension Code(s): I10 - Essential (primary) hypertension (4) Hyperlipidemia: Status: Acute Qualifiers: Hyperlipidemia type: unspecified Qualified Code(s): E78.5 - Hyperlipidemia, unspecified Code(s): E78.5 - Hyperlipidemia, unspecified (5) Diabetes mellitus: Status: Acute Qualifiers: Diabetes mellitus type: type 2 Diabetes mellitus adjunct faculty for medical terminology insulin use: without assisted use Diabetes mellitus complication status: with kidney complications Diabetes mellitus complication detail: with nephropathy Qualified Code(s): E11.21 - Type 2 diabetes mellitus with diabetic nephropathy Code(s): E11.9 - Type 2 diabetes mellitus without complications Additional A&P Information Acute kidney injury on underlying CKD Thrombocytosis Thank you for allowing me to participate in patient's care. Please feel free to call with questions or concerns. Coding Level of Care Code Acute Automotive Service Porter for [facility] Diagnoses Systolic CHF, acute I50.21 Aortic stenosis I35.0 Cardiac valve disease etiology: nonrheumatic Hypertension I10 Hypertension type: essential hypertension Hyperlipidemia E78.5 Hyperlipidemia type: unspecified Diabetes mellitus E11.21 Diabetes mellitus type: type 2 Diabetes mellitus adjunct faculty for medical terminology insulin use: without adjunct faculty for medical terminology use Diabetes mellitus complication status: with kidney complications Diabetes mellitus complication detail: with nephropathy
--- NOTE | 2019-08-13 14:05 | PC.NURSE ---
Patient's daughter states that patient has had significant mold in his home for several months that they rest of the family had not been aware of until recently.
[2019-08-13 17:32] LABS: Glucose Point of Care 218 mg/dL (70-110)
[2019-08-13] MEDS: FUROsemide 10 mg/mL SDV 10mL 60 MG IVP (19:09)
[2019-08-13 21:01] LABS: Glucose Point of Care 97 mg/dL (70-110)
--- NOTE | 2019-08-13 21:01 | PM.PN ---
Subjective Subjective: Interval history: Denies chest pain. Has been having progressive dyspnea on exertion, lower extremity edema. Prior to worsening which started about a month ago he has been functional without dyspnea on exertion or lower extremity swelling. About 1 month ago he reports having a viral flulike illness. Vitals/I&O/Wt Last Vital Signs Temp 98.6 F 08/13/19 20:00 Pulse 24 L 08/13/19 20:00 Resp 25 H 08/13/19 20:00 BP 106/79 08/13/19 20:00 Pulse Ox 98 08/13/19 20:00 08/13/19 08/13/19 08/13/19 06:59 14:59 22:59 Intake Total 125 / 125 680 / 680 120 / 800 Output Total 350 / 350 500 / 500 150 / 650 Balance -225 / -225 180 / 180 -30 / 150 Weight last 48 hrs Weight 75.342 kg Weight 70.76 kg Physical Exam Const: COMMON NORMALS: no apparent distress and oriented x3 HENMT: COMMON NORMALS: oropharynx normal Neck/C-Spine: COMMON NORMALS: no JVD Resp: COMMON NORMALS: normal respiratory effort AUSCULTATION: crackles (Few crackles at bases.) Cardio: COMMON NORMALS: no JVD, regular rhythm, S1 normal heart sound, S2 normal heart sound and no murmurs RHYTHM: regular rhythm HEART SOUNDS: S1 normal and S2 normal GI: COMMON NORMALS: normal to inspection, nondistended, normoactive bowel sounds, soft to palpation and non-tender PALPATION: Yes soft Extremity: COMMON NORMALS: no joint enlargement GENERAL: Yes edema (Severe edema below the knees.) Neuro: COMMON NORMALS: oriented x3 and moves all extremities Skin: COMMON NORMALS: no rashes or lesions noted GENERAL SKIN EXAM: no rashes or lesions noted Data : 08/13/19 01:30 08/13/19 01:30 A&P Assessment and plan (1) Systolic CHF, acute: Acute cardiomyopathy, acute CHF with diminished EF, 20%. Cause is not clear. Troponin elevated with flat trend. In the setting of acute kidney injury on chronic kidney disease. Denies chest pain. Acute NC is not suggested, although does have risk factors for coronary disease. Reports having a viral illness 1 month ago. Status: Acute Code(s): I50.21 - Acute systolic (congestive) heart failure (2) Aortic stenosis: Possible aortic stenosis, versus low flow due to cardiomyopathy. Status: Acute Qualifiers: Cardiac valve disease etiology: nonrheumatic Qualified Code(s): I35.0 - Nonrheumatic aortic (valve) stenosis Code(s): I35.0 - Nonrheumatic aortic (valve) stenosis (3) Acute kidney injury: Possible cardiorenal syndrome. He does state that he takes intermittently 2 tablets of 800 mg ibuprofen for aches and pains. Discussed with him to discontinue NSAIDs. Prostate enlarged on ultrasound. Will request for PVR. Possible acute kidney injury on chronic kidney disease, although kidneys appear normal. Status: Acute Code(s): N17.9 - Acute kidney failure, unspecified (4) Diabetes mellitus: A1c 8.5. Would benefit from better control. Status: Acute Code(s): E11.9 - Type 2 diabetes mellitus without complications (5) Hypertension: Blood pressures are not running high. Status: Acute Qualifiers: Hypertension type: essential hypertension Qualified Code(s): I10 - Essential (primary) hypertension Code(s): I10 - Essential (primary) hypertension (6) Hyperlipidemia: Poorly controlled diabetes. Start statin. Status: Acute Qualifiers: Hyperlipidemia type: unspecified Qualified Code(s): E78.5 - Hyperlipidemia, unspecified Code(s): E78.5 - Hyperlipidemia, unspecified Attestations Medical Necessity Statement*: Continue admission for assessment management of new systolic CHF, acute kidney injury. Coding Level of Care Code Acute Aircraft Engineer for [facility] Diagnoses Systolic CHF, acute I50.21 Aortic stenosis I35.0 Cardiac valve disease etiology: nonrheumatic Acute kidney injury N17.9 Diabetes mellitus E11.9 Hypertension I10 Hypertension type: essential hypertension Hyperlipidemia E78.5 Hyperlipidemia type: unspecified
[2019-08-13] MEDS: atorvastatin 40 mg Tablet PO (21:57)
--- NOTE | 2019-08-13 22:10 | PC.NURSE ---
Addendum entered by Cynthia Hernandez RN 08/13/19 23:04: 2nd bladder scan post urination was 50 ml. Original Note: patient was bladder scanned post void and shown to have 97-100 ml remaining. Also patient and family member said that he has had issues with statins in the past making him hurt all over but wasnt sure if tried lipitor before so agreed to try it and let us know if he has any adverse effects. .
[2019-08-14] VITALS: BP 93/56; PULSE 81; RESP 22; TEMP 36.8; O2SAT 95
[2019-08-14 04:00] VITALS: BP 104/73; PULSE 75; RESP 18; TEMP 36.8; O2SAT 95
[2019-08-14 04:45] LABS: Basophils % 0.3 %; Eosinophils # 0.2 10^3/uL (0.0-0.8); Eosinophils % 1.8 %; Hematocrit 43.2 % (42.0-52.0); Hemoglobin 13.3 g/dL (11.7-16.6); Lymphocytes # 1.7 10^3/uL (0.8-4.8); Lymphocytes % 16.6 %; Mean Corpuscular HGB Conc 30.8 g/dL (30.0-36.0); Mean Corpuscular Hemoglobin 25.6 pg (28.0-34.0); Mean Corpuscular Volume 83.2 fL (80-94); Mean Platelet Volume 9.8 fL (7.4-10.4); Monocytes # 1.6 10^3/uL (0.2-0.9); Monocytes % 15.1 %; Neutrophils # 6.9 10^3/uL (1.8-7.7); Neutrophils % 65.6 %; Nucleated Red Blood Cells % 0 %; Platelet Count 409 10^3/cmm (130-400); Red Blood Count 5.19 10^6/uL (4.1-5.3); Red Cell Distribution Width 15.5 % (12.1-15.1); White Blood Count 10.5 10^3/uL (4.0-10.0)
[2019-08-14 05:07] LABS: Alanine Aminotransferase 22 U/L (0-41); Albumin Level 3.3 g/dL (3.5-5.2); Alkaline Phosphatase 63 IU/L (40-130); Anion Gap 18.5 (5-19); Aspartate Amino Transferase 33 U/L (0-40); Blood Urea Nitrogen 46 mg/dL (8-23); Calcium 10.1 mg/dL (8.5-10.5); Carbon Dioxide 27 mmol/L (22-29); Chloride 97 mmol/L (98-107); Globulin 3.8 g/dL (1.3-4.6); Glucose 186 mg/dL (65-115); Potassium 4.5 mmol/L (3.5-5.1); Sodium 138 mmol/L (136-145); Total Protein 7.1 g/dL (6.6-8.7)
[2019-08-14] MEDS: enoxaparin 30 mg/0.3 mL Syringe SUBCUT (06:05)
[2019-08-14 06:21] LABS: Glucose Point of Care 188 mg/dL (70-110)
[2019-08-14 07:24] VITALS: BP 116/81; PULSE 85; RESP 19; TEMP 36.4; O2SAT 90
[2019-08-14] MEDS: aspirin 81 mg EC Tablet PO (07:51)
[2019-08-14] MEDS: pantoprazole DR 40 mg Tablet PO (07:51)
[2019-08-14 11:32] VITALS: BP 106/72; PULSE 75; RESP 24; O2SAT 98
[2019-08-14 11:42] LABS: Glucose Point of Care 197 mg/dL (70-110)
[2019-08-14] MEDS: carvedilol 3.125 mg Tablet PO (12:31)
[2019-08-14] MEDS: FUROsemide 10 mg/mL SDV 10mL 60 MG IVP (12:31)
--- NOTE | 2019-08-14 13:41 | PM.PN ---
Subjective Subjective: Interval history: Last 24 hours: Patient has symptomatically improved. Urine output has not been well documented. Denies having any episodes of chest discomfort. No episodes on telemetry. Medications: Reviewed: Yes Medication Review Details: Current Medications Acetaminophen (Tylenol) 650 mg PO Q6H PRN PRN Reason: Mild/Mod Pain Or Temp >/= 101 Aspirin (Aspirin Ec) 81 mg PO DAILY [facility] Last Admin: 08/14/19 07:51 Dose: 81 mg Documented by: Atorvastatin Calcium (Lipitor) 40 mg PO BEDTIME [facility] Last Admin: 08/13/19 21:57 Dose: 40 mg Documented by: Carvedilol (Coreg) 3.125 mg PO BID [facility] Last Admin: 08/14/19 12:31 Dose: 3.125 mg Documented by: Dextrose (D50w) 25 ml IVP ONCE PRN; Protocol PRN Reason: hypoglycemia protocol Dextrose (D50w) 50 ml IVP PRN PRN; Protocol PRN Reason: hypoglycemia protocol Enoxaparin Sodium (Lovenox) 30 mg SUBCUT Q24H [facility] Last Admin: 08/14/19 06:05 Dose: 30 mg Documented by: Furosemide (Lasix) 60 mg IVP Q24H [facility] Last Admin: 08/14/19 12:31 Dose: 60 mg Documented by: Glucagon (Glucagen) 1 mg IM ONCE PRN; Protocol PRN Reason: Adult Acute Hypoglycemia Prot. Dextrose (D5w) 500 mls @ 100 mls/hr IV ONCE PRN; Protocol PRN Reason: Adult Acute Hypoglycemia Prot Insulin Aspart (Novolog) 0 unit SUBCUT WM&BEDTIME [facility]; Protocol Last Admin: 08/14/19 12:33 Dose: 4 unit Documented by: Morphine Sulfate (Morphine) 4 mg IVP Q4H PRN PRN Reason: SEVERE PAIN Ondansetron HCl (Zofran) 4 mg IVP Q6H PRN PRN Reason: NAUSEA AND VOMITING Pantoprazole Sodium (Protonix) 40 mg PO DAILY [facility] Last Admin: 08/14/19 07:51 Dose: 40 mg Documented by: Vitals/I&O/Wt Last Vital Signs Temp 97.5 F L 08/14/19 07:24 Pulse 75 08/14/19 11:32 Resp 24 H 08/14/19 11:32 BP 106/72 08/14/19 11:32 Pulse Ox 98 08/14/19 11:32 08/13/19 08/14/19 08/14/19 22:59 06:59 14:59 Intake Total 180 / 860 200 / 1060 480 / 480 Output Total 150 / 650 450 / 1100 680 / 680 Balance 30 / 210 -250 / -40 -200 / -200 Weight last 48 hrs Weight 164 lb Weight 166 lb 1.6 oz Weight 156 lb Physical Exam Const: COMMON NORMALS: no apparent distress, average body habitus, oriented x3, alert and well nourished GENERAL APPEARANCE: cooperative, comfortable, well kempt and well developed ORIENTATION/CONSCIOUSNESS: Yes oriented to person, Yes oriented to place and Yes oriented to time HENMT: COMMON NORMALS: hearing grossly normal bilaterally, moist oral mucous membranes and oropharynx normal MOUTH: oral and palatal mucosa normal Eye: COMMON NORMALS: PERRL, EOMs intact bilaterally and conjunctivae normal CONJUNCTIVA: Yes conjunctivae normal SCLERA: sclerae normal PUPIL: Yes PERRL Resp: COMMON NORMALS: normal respiratory effort, no use of accessory muscles, clear to auscultation bilaterally and percussion normal EFFORT & INSPECTION: No labored and No audible wheezes AUSCULTATION: clear to auscultation bilaterally, no crackles, no rales, no rhonchi and no wheezes PERCUSSION: percussion normal Cardio: COMMON NORMALS: regular rate, regular rhythm, S1 normal heart sound, S2 normal heart sound and peripheral pulses 2+ throughout; negative for no gallops and negative for no clicks JUGULAR VENOUS DISTENTION: JVD PALPATION: normal PMI, no heave, no palpable S3, no palpable S4 and no thrill RATE: regular rate RHYTHM: regular rhythm HEART SOUNDS: S1 normal, S2 normal, no click, no gallops and murmur PERIPHERAL PULSES: pulses 2+ throughout GI: COMMON NORMALS: normal to inspection, nondistended, normoactive bowel sounds, soft to palpation and non-tender PALPATION: Yes soft Extremity: GENERAL: Yes edema (1+ bilateral edema) Neuro: COMMON NORMALS: oriented x3 and no focal motor deficits SENSORIUM/ORIENTATION: Yes alert, Yes oriented to person, Yes oriented to place and Yes oriented to time CRANIAL NERVES: Yes CN normal except as noted Psych: COMMON NORMALS: thought process normal APPEARANCE: Yes well kempt THOUGHT PROCESS: normal thought process ATTENTION/CONCENTRATION: Yes attention grossly intact INSIGHT: insight good JUDGEMENT: judgment good Data : 08/14/19 04:03 08/14/19 04:03 A&P Assessment and plan (1) Systolic CHF, acute: Newly diagnosed CHF. LVEF=20%. -continue IV lasix today. Transition to p.o. Lasix tomorrow. - UO not documented properly. - start on low dose coreg tomorrow. -Add ACEI/ARB/ARNI later based on renal function. -Plan for stress test on Friday; once patient is more euvolemic. Status: Acute Code(s): I50.21 - Acute systolic (congestive) heart failure (2) Aortic stenosis: Possible Low flow low gradient severe on echo. He would benefit from DSE to differentiate from pseudo . Status: Acute Qualifiers: Cardiac valve disease etiology: nonrheumatic Qualified Code(s): I35.0 - Nonrheumatic aortic (valve) stenosis Code(s): I35.0 - Nonrheumatic aortic (valve) stenosis (3) Hypertension: BP running normal. Status: Acute Qualifiers: Hypertension type: essential hypertension Qualified Code(s): I10 - Essential (primary) hypertension Code(s): I10 - Essential (primary) hypertension (4) Hyperlipidemia: Status: Acute Qualifiers: Hyperlipidemia type: unspecified Qualified Code(s): E78.5 - Hyperlipidemia, unspecified Code(s): E78.5 - Hyperlipidemia, unspecified (5) Diabetes mellitus: Status: Acute Qualifiers: Diabetes mellitus type: type 2 Diabetes mellitus shelter insulin use: without shelter use Diabetes mellitus complication status: with kidney complications Diabetes mellitus complication detail: with nephropathy Qualified Code(s): E11.21 - Type 2 diabetes mellitus with diabetic nephropathy Code(s): E11.9 - Type 2 diabetes mellitus without complications Additional A&P Information Acute kidney injury on underlying CKD : Renal function is worsened with creatinine increasing to 2.5. Thrombocytosis Thank you for allowing me to participate in patient's care. Please feel free to call with questions or concerns. Attestations Medical Necessity Statement*: Needs hospital stay for management of newly diagnosed CHF Coding Level of Care Code Acute Child Welfare Director for [facility] Diagnoses Systolic CHF, acute I50.21 Aortic stenosis I35.0 Cardiac valve disease etiology: nonrheumatic Hypertension I10 Hypertension type: essential hypertension Hyperlipidemia E78.5 Hyperlipidemia type: unspecified Diabetes mellitus E11.21 Diabetes mellitus type: type 2 Diabetes mellitus logistics project manager insulin use: without shelter use Diabetes mellitus complication status: with kidney complications Diabetes mellitus complication detail: with nephropathy
[2019-08-14 15:21] VITALS: BP 80/50; PULSE 74; RESP 27
[2019-08-14 16:51] LABS: Glucose Point of Care 164 mg/dL (70-110)
[2019-08-14 20:00] VITALS: BP 93/55; PULSE 76; RESP 26; TEMP 36.6; O2SAT 97
--- NOTE | 2019-08-14 20:07 | PC.NURSE ---
Upon performing shift assessment, patient's family had concerns regarding plan of care for the patient. Had an extensive conversation with family regarding their concerns for the patient, (family member) Patient's grand-daughters are both nurses and were extensive in asking questions regarding patient's plan of care. Contacted Dr. Tovar and informed her that family requesting a meeting. Per Dr. Tovar will be there 08/15/19 between 10am and 12pm to have meeting. Family informed and patient, understanding verbalized and very appreciative of the ability to meet. Care Continued.
--- NOTE | 2019-08-14 20:47 | PM.PN ---
Subjective Subjective: Interval history: Denies any changes in his breathing. Family noticed perhaps some improvement in the swelling in his lower extremities. Vitals/I&O/Wt Last Vital Signs Temp 98 F 08/14/19 20:00 Pulse 76 08/14/19 20:00 Resp 26 H 08/14/19 20:00 BP 93/55 08/14/19 20:00 Pulse Ox 97 08/14/19 20:00 08/14/19 08/14/19 08/14/19 06:59 14:59 22:59 Intake Total 200 / 1060 480 / 480 Output Total 450 / 1100 1080 / 1080 300 / 1380 Balance -250 / -40 -600 / -600 -300 / -900 Weight last 48 hrs Weight 74.389 kg Weight 75.342 kg Physical Exam Const: COMMON NORMALS: no apparent distress and oriented x3 HENMT: COMMON NORMALS: oropharynx normal Neck/C-Spine: COMMON NORMALS: no JVD Resp: COMMON NORMALS: normal respiratory effort and clear to auscultation bilaterally AUSCULTATION: clear to auscultation bilaterally Cardio: COMMON NORMALS: no JVD, regular rhythm, S1 normal heart sound, S2 normal heart sound and no murmurs RHYTHM: regular rhythm HEART SOUNDS: S1 normal and S2 normal GI: COMMON NORMALS: normal to inspection, nondistended, normoactive bowel sounds, soft to palpation and non-tender PALPATION: Yes soft Extremity: COMMON NORMALS: no joint enlargement GENERAL: Yes edema (Severe edema below the knees.) Neuro: COMMON NORMALS: oriented x3 and moves all extremities Skin: COMMON NORMALS: no rashes or lesions noted GENERAL SKIN EXAM: no rashes or lesions noted Data : 08/14/19 04:03 08/14/19 04:03 A&P Assessment and plan (1) Systolic CHF, acute: Some improvement in lower extremity edema. Saturating well on room air. Output not very impressive this morning, although not entirely clear if correctly recorded. Lasix dose was increased. Continue to monitor. Acute cardiomyopathy, acute CHF with diminished EF, 20%. Cause is not clear. Troponin elevated with flat trend. In the setting of acute kidney injury on chronic kidney disease. Creatinine today up slightly to 2.5. Denies chest pain. Acute [place] is not suggested, although does have risk factors for coronary disease. Reports having a viral illness 1 month ago. Status: Acute Code(s): I50.21 - Acute systolic (congestive) heart failure (2) Aortic stenosis: Possible aortic stenosis, versus low flow due to cardiomyopathy. Status: Acute Qualifiers: Cardiac valve disease etiology: nonrheumatic Qualified Code(s): I35.0 - Nonrheumatic aortic (valve) stenosis Code(s): I35.0 - Nonrheumatic aortic (valve) stenosis (3) Acute kidney injury: Possible cardiorenal syndrome. He does state that he takes intermittently 2 tablets of 800 mg ibuprofen for aches and pains. Discussed with him to discontinue NSAIDs. Prostate enlarged on ultrasound. 50mL on PVR. Possible acute kidney injury on chronic kidney disease, although kidneys appear normal. Status: Acute Code(s): N17.9 - Acute kidney failure, unspecified (4) Diabetes mellitus: A1c 8.5. Would benefit from better control. Status: Acute Code(s): E11.9 - Type 2 diabetes mellitus without complications (5) Hypertension: Blood pressures are not running high. Status: Acute Qualifiers: Hypertension type: essential hypertension Qualified Code(s): I10 - Essential (primary) hypertension Code(s): I10 - Essential (primary) hypertension (6) Hyperlipidemia: Poorly controlled diabetes. Start statin. Status: Acute Qualifiers: Hyperlipidemia type: unspecified Qualified Code(s): E78.5 - Hyperlipidemia, unspecified Code(s): E78.5 - Hyperlipidemia, unspecified Attestations Medical Necessity Statement*: Continue admission for assessment of management of new CHF, possible aortic stenosis in the setting of poor renal function. Coding Level of Care Code Acute Air And Missile Defense Crewmember for [facility] Diagnoses Systolic CHF, acute I50.21 Aortic stenosis I35.0 Cardiac valve disease etiology: nonrheumatic Acute kidney injury N17.9 Diabetes mellitus E11.9 Hypertension I10 Hypertension type: essential hypertension Hyperlipidemia E78.5 Hyperlipidemia type: unspecified
[2019-08-14 20:48] LABS: Glucose Point of Care 145 mg/dL (70-110)
[2019-08-14] MEDS: atorvastatin 40 mg Tablet PO (20:56)
[2019-08-15] VITALS (7 sets, daily range): BP systolic 92–109; BP diastolic 59–77; PULSE 74–86; RESP 12–22; TEMP 36.2–36.8; O2SAT 95–98
[2019-08-15 04:59] LABS: Basophils % 0.3 %; Eosinophils # 0.4 10^3/uL (0.0-0.8); Eosinophils % 4.4 %; Hematocrit 38.2 % (42.0-52.0); Hemoglobin 11.8 g/dL (11.7-16.6); Lymphocytes # 1.7 10^3/uL (0.8-4.8); Lymphocytes % 19.2 %; Mean Corpuscular HGB Conc 30.9 g/dL (30.0-36.0); Mean Corpuscular Hemoglobin 24.8 pg (28.0-34.0); Mean Corpuscular Volume 80.3 fL (80-94); Mean Platelet Volume 10.1 fL (7.4-10.4); Monocytes # 1.4 10^3/uL (0.2-0.9); Neutrophils # 5.2 10^3/uL (1.8-7.7); Neutrophils % 59.5 %; Nucleated Red Blood Cells % 0 %; Platelet Count 390 10^3/cmm (130-400); Red Blood Count 4.76 10^6/uL (4.1-5.3); Red Cell Distribution Width 15.3 % (12.1-15.1); White Blood Count 8.8 10^3/uL (4.0-10.0)
[2019-08-15 05:16] LABS: Add Urine Microscopic? NO
[2019-08-15 05:22] LABS: Alanine Aminotransferase 22 U/L (0-41); Albumin Level 3.4 g/dL (3.5-5.2); Alkaline Phosphatase 62 IU/L (40-130); Anion Gap 18.3 (5-19); Aspartate Amino Transferase 33 U/L (0-40); Blood Urea Nitrogen 63 mg/dL (8-23); Calcium 9.5 mg/dL (8.5-10.5); Carbon Dioxide 27 mmol/L (22-29); Chloride 97 mmol/L (98-107); Glucose 136 mg/dL (65-115); Potassium 4.3 mmol/L (3.5-5.1); Sodium 138 mmol/L (136-145); Total Bilirubin 0.7 mg/dL (0.15-1.2); Total Protein 6.4 g/dL (6.6-8.7)
[2019-08-15 05:23] LABS: Bilirubin Urine Neg (NEGATIVE); Blood Urine Neg (Negative); Glucose Urine UA Norm (Normal); Ketones Urine Negative (Negative); Leukocyte Esterase Urine Negative (Negative); Nitrate Urine Negative (Negative); Protein Urine Neg (Negative); Specific Gravity, Urine 1.015 (1.005-1.030); Urine Appearance Clear (CLEAR); Urine Color Yellow (Yellow); Urobilinogen Urine Norm (Negative); pH Urine 6 (5-7)
[2019-08-15 05:33] LABS: Urine Protein Random 6 mg/dL
[2019-08-15] MEDS: enoxaparin 30 mg/0.3 mL Syringe SUBCUT (05:40)
[2019-08-15 06:43] LABS: Glucose Point of Care 137 mg/dL (70-110)
[2019-08-15] MEDS: benzonatate 100 mg Capsule 200 MG PO (06:44)
--- NOTE | 2019-08-15 10:04 | DCPLANNER ---
Pg 2 of IM explained to pt, no questions, copy provided.
[2019-08-15 11:00] LABS: Glucose Point of Care 227 mg/dL (70-110)
[2019-08-15] MEDS: pantoprazole DR 40 mg Tablet PO (11:08)
[2019-08-15] MEDS: aspirin 81 mg EC Tablet PO (11:08)
--- NOTE | 2019-08-15 13:13 | PM.PN ---
Subjective Subjective: Interval history: Last 24 hours: No events on telemetry. Complains of body ache since being started on statin. He has been tried on multiple statins as an outpatient which he did not tolerate. Denies having any chest discomfort. His shortness of breath has significantly improved. Medications: Reviewed: Yes Medication Review Details: Current Medications Acetaminophen (Tylenol) 650 mg PO Q6H PRN PRN Reason: Mild/Mod Pain Or Temp >/= 101 Aspirin (Aspirin Ec) 81 mg PO DAILY [facility] Last Admin: 08/15/19 11:08 Dose: 81 mg Documented by: Atorvastatin Calcium (Lipitor) 40 mg PO BEDTIME [facility] Last Admin: 08/14/19 20:56 Dose: 40 mg Documented by: Benzonatate (Tessalon Pearls) 200 mg PO TID PRN PRN Reason: COUGH Last Admin: 08/15/19 06:44 Dose: 200 mg Documented by: Carvedilol (Coreg) 3.125 mg PO Q12H [facility] Last Admin: 08/15/19 12:14 Dose: Not Given Documented by: Dextrose (D50w) 25 ml IVP ONCE PRN; Protocol PRN Reason: hypoglycemia protocol Dextrose (D50w) 50 ml IVP PRN PRN; Protocol PRN Reason: hypoglycemia protocol Enoxaparin Sodium (Lovenox) 30 mg SUBCUT Q24H [facility] Last Admin: 08/15/19 05:40 Dose: 30 mg Documented by: Furosemide (Lasix) 60 mg IVP Q24H [facility] Last Admin: 08/14/19 12:31 Dose: 60 mg Documented by: Glucagon (Glucagen) 1 mg IM ONCE PRN; Protocol PRN Reason: Adult Acute Hypoglycemia Prot. Dextrose (D5w) 500 mls @ 100 mls/hr IV ONCE PRN; Protocol PRN Reason: Adult Acute Hypoglycemia Prot Insulin Aspart (Novolog) 0 unit SUBCUT WM&BEDTIME [facility]; Protocol Last Admin: 08/15/19 07:28 Dose: Not Given Documented by: Morphine Sulfate (Morphine) 4 mg IVP Q4H PRN PRN Reason: SEVERE PAIN Ondansetron HCl (Zofran) 4 mg IVP Q6H PRN PRN Reason: NAUSEA AND VOMITING Pantoprazole Sodium (Protonix) 40 mg PO DAILY [facility] Last Admin: 08/15/19 11:08 Dose: 40 mg Documented by: Vitals/I&O/Wt Last Vital Signs Temp 97.4 F L 08/15/19 07:08 Pulse 86 08/15/19 12:00 Resp 17 08/15/19 12:00 BP 101/69 08/15/19 12:00 Pulse Ox 96 08/15/19 12:00 08/14/19 08/15/19 08/15/19 22:59 06:59 14:59 Intake Total 120 / 600 120 / 120 Output Total 600 / 1680 400 / 2080 Balance -480 / -1080 -400 / -1480 120 / 120 Intake & Output 08/13/19 08/14/19 08/15/19 08/16/19 06:59 06:59 06:59 06:59 Intake Total 125 / 125 1060 / 1060 600 / 600 120 / 120 Output Total 350 / 350 1100 / 1100 2079 / 0 Balance -225 / -225 -40 / -40 -1480 / -1480 120 / 120 Weight 156 lb 164 lb 160 lb 0.5 oz Weight last 48 hrs Weight 160 lb 0.5 oz Weight 164 lb Physical Exam Const: COMMON NORMALS: no apparent distress, average body habitus, oriented x3, alert and well nourished GENERAL APPEARANCE: cooperative, comfortable, well kempt and well developed ORIENTATION/CONSCIOUSNESS: Yes oriented to person, Yes oriented to place and Yes oriented to time HENMT: COMMON NORMALS: hearing grossly normal bilaterally, moist oral mucous membranes and oropharynx normal MOUTH: oral and palatal mucosa normal Eye: COMMON NORMALS: PERRL, EOMs intact bilaterally and conjunctivae normal CONJUNCTIVA: Yes conjunctivae normal SCLERA: sclerae normal PUPIL: Yes PERRL Resp: COMMON NORMALS: clear to auscultation bilaterally and percussion normal EFFORT & INSPECTION: No labored and No audible wheezes AUSCULTATION: clear to auscultation bilaterally, no crackles, no rales, no rhonchi and no wheezes PERCUSSION: percussion normal Cardio: COMMON NORMALS: regular rate, regular rhythm, S1 normal heart sound, S2 normal heart sound and peripheral pulses 2+ throughout JUGULAR VENOUS DISTENTION: JVD PALPATION: normal PMI, no heave, no palpable S3, no palpable S4 and no thrill RATE: regular rate RHYTHM: regular rhythm HEART SOUNDS: S1 normal, S2 normal, no click, no gallops and murmur PERIPHERAL PULSES: pulses 2+ throughout GI: COMMON NORMALS: soft to palpation PALPATION: Yes soft Extremity: GENERAL: Yes edema (1+ bilateral edema) Neuro: COMMON NORMALS: oriented x3 SENSORIUM/ORIENTATION: Yes alert, Yes oriented to person, Yes oriented to place and Yes oriented to time CRANIAL NERVES: Yes CN normal except as noted Psych: COMMON NORMALS: thought process normal APPEARANCE: Yes well kempt THOUGHT PROCESS: normal thought process ATTENTION/CONCENTRATION: Yes attention grossly intact INSIGHT: insight good JUDGEMENT: judgment good Data : 08/15/19 04:05 08/15/19 04:05 Other Labs: Laboratory Tests 08/15/19 04:05 Total Bilirubin 0.7 AST 33 ALT 22 Alkaline Phosphatase 62 Total Protein 6.4 L Albumin 3.4 L Globulin 3.0 Echo: I personally reviewed and interpreted this imaging study as follows: My impression: 13 August 2019 CONCLUSIONS 1. Dilated left ventricular cavity size. Severely decreased left ventricular systolic function. Left ventricular ejection fraction is estimated at 20 %. Severe global hypokinesis with relative sparing of basal inferolateral wall. Grade II diastolic dysfunction, moderately elevated filling pressures. 2. Possibly normal right ventricular size and systolic function. 3. Mild pulmonary hypertension with pulmonary artery pressure estimated at 39 mmHg. 4. Possibly low gradient severe aortic valve stenosis, peak velocity 2.7 m/s, peak gradient 29 mmHg, mean gradient 16.4 mmHg, LEXIS 0.58 cm squared. Visually aortic valve appears to have severe aortic stenosis. Mild aortic valve regurgitation. 5. [id number] pulmonary valve regurgitation. 6. No prior similar studies to compare. A&P Assessment and plan (1) Systolic CHF, acute: Newly diagnosed ACC/AHA stage C, NYHA class 3 CHF. LVEF=20%. -Hold IV lasix today. Transition to p.o. Lasix tomorrow. - UO not documented properly. - start on low dose coreg. -Unable to add ACEI/ARB/ARNI later based on renal function. -I will discuss about LifeVest with the patient and see if he is agreeable for the same. -I had planned for stress test on Friday; once patient is more euvolemic. However I had a prolonged discussion with patient and his extended family today including his son and daughter. They expressed their understanding about the need of stress testing. They would like to hold off on it presently though. They feel patient is doing so much better. There is a history of patient's father apparently passing away while undergoing coronary angiogram and that is making it difficult for them to make any decisions. Disease etiology management options and prognosis was discussed in detail with the patient. Greater than 40 minutes were spent with the patient and the family. Status: Acute Code(s): I50.21 - Acute systolic (congestive) heart failure (2) Aortic stenosis: Possible Low flow low gradient severe on echo. He would benefit from DSE to differentiate from pseudo . -Patient's family would like to hold off of any testing until they are seen outpatient in the office. They would like to take some time to grasp the overall situation and then make their decision regarding further testing. Status: Acute Qualifiers: Cardiac valve disease etiology: nonrheumatic Qualified Code(s): I35.0 - Nonrheumatic aortic (valve) stenosis Code(s): I35.0 - Nonrheumatic aortic (valve) stenosis (3) Hypertension: BP running low normal. Status: Acute Qualifiers: Hypertension type: essential hypertension Qualified Code(s): I10 - Essential (primary) hypertension Code(s): I10 - Essential (primary) hypertension (4) Hyperlipidemia: History of intolerance to statin. On colesevelam at home. Status: Acute Qualifiers: Hyperlipidemia type: unspecified Qualified Code(s): E78.5 - Hyperlipidemia, unspecified Code(s): E78.5 - Hyperlipidemia, unspecified (5) Diabetes mellitus: On oral hypoglycemic agents. Status: Acute Qualifiers: Diabetes mellitus type: type 2 Diabetes mellitus terminal manager insulin use: without skilled nursing use Diabetes mellitus complication status: with kidney complications Diabetes mellitus complication detail: with nephropathy Qualified Code(s): E11.21 - Type 2 diabetes mellitus with diabetic nephropathy Code(s): E11.9 - Type 2 diabetes mellitus without complications Additional A&P Information Acute kidney injury on underlying CKD (likely diabetic nephropathy): Renal function is worsened with BUN increasing to 64 and creatinine increasing to 2.6. Thrombocytosis Thank you for allowing me to participate in patient's care. Please feel free to call with questions or concerns. Attestations Medical Necessity Statement*: Patient needs hospital stay in setting of worsening renal function. Coding Level of Care Code Acute Barn And Property Manager for [facility] Diagnoses Systolic CHF, acute I50.21 Aortic stenosis I35.0 Cardiac valve disease etiology: nonrheumatic Hypertension I10 Hypertension type: essential hypertension Hyperlipidemia E78.5 Hyperlipidemia type: unspecified Diabetes mellitus E11.21 Diabetes mellitus type: type 2 Diabetes mellitus terminal manager insulin use: without skilled nursing use Diabetes mellitus complication status: with kidney complications Diabetes mellitus complication detail: with nephropathy
[2019-08-15] MEDS: acetaminophen 325 mg Tablet 650 MG PO ×2 (15:25→20:54)
[2019-08-15 17:11] LABS: Glucose Point of Care 90 mg/dL (70-110)
--- NOTE | 2019-08-15 19:06 | PM.PN ---
Subjective Subjective: Interval history: Denies trouble breathing. Feels like he is having some general muscle aches. Family noticed dry patches and excoriations on his dorsal foot, lower shins. Appears to now have some wrinkling and dryness in the skin. Discussed with family moisturizing with heavy moisturizer. Family also concern regarding pressure in the heels. Discussed with them that heel protectors are a good idea. Family concern regarding hypertrophic nails on his feet. Discussed with him may benefit from referral to podiatry. Family requesting whether this can be done inpatient. Discussed with podiatry, and this is not available as inpatient consultation, however, may be referred to clinic. Clinic is almost a capacity, however, there should be possibility to see him. It usually runs on Tuesdays. Vitals/I&O/Wt Last Vital Signs Temp 97.8 F 08/15/19 16:00 Pulse 78 08/15/19 16:00 Resp 18 08/15/19 16:00 BP 92/59 08/15/19 16:00 Pulse Ox 95 08/15/19 16:00 08/15/19 08/15/19 08/15/19 06:59 14:59 22:59 Intake Total 480 / 480 1740 / 2220 Output Total 400 / 2080 Balance -400 / -1480 480 / 480 1740 / 2220 Weight last 48 hrs Weight 72.589 kg Weight 74.389 kg Physical Exam Const: COMMON NORMALS: no apparent distress and oriented x3 HENMT: COMMON NORMALS: oropharynx normal Neck/C-Spine: COMMON NORMALS: no JVD Resp: COMMON NORMALS: normal respiratory effort and clear to auscultation bilaterally AUSCULTATION: clear to auscultation bilaterally Cardio: COMMON NORMALS: no JVD, regular rhythm, S1 normal heart sound, S2 normal heart sound and no murmurs RHYTHM: regular rhythm HEART SOUNDS: S1 normal and S2 normal GI: COMMON NORMALS: normal to inspection, nondistended, normoactive bowel sounds, soft to palpation and non-tender PALPATION: Yes soft Extremity: COMMON NORMALS: no joint enlargement GENERAL: Yes edema (Severe edema below the knees.) Neuro: COMMON NORMALS: oriented x3 and moves all extremities Skin: COMMON NORMALS: no rashes or lesions noted GENERAL SKIN EXAM: no rashes or lesions noted Data : 08/15/19 04:05 08/15/19 04:05 A&P Assessment and plan (1) Systolic CHF, acute: Lower extremity edema is improving. No respiratory complaints. Lower extremities now dry with some excoriations. Apply heavy moisturizer. Further Lasix held for now by cardiology. Reassess volume status and renal function in the morning. Soft blood pressures. Monitor. Acute cardiomyopathy, acute CHF with diminished EF, 20%. Unclear etiology. Reports having a viral illness 1 month ago. Also with possible aortic stenosis. Denies chest pain. Acute [place] is not suggested, although does have risk factors for coronary disease. Family are concerned regarding him having a stress test tomorrow, and requested with cardiology that this be postponed for several days. Family concerned regarding generalized achiness. Atorvastatin discontinued due to concern for myopathy. Lower extremity edema family asking whether he could have compression stockings. Feet are warm and appear perfused, however, difficult to palpate pulses with edema. Quested nursing staff Doppler pulses bilaterally, and if good pulses present stockings should likely be safe. Status: Acute Code(s): I50.21 - Acute systolic (congestive) heart failure (2) Aortic stenosis: Possible aortic stenosis, versus low flow due to cardiomyopathy. Status: Acute Qualifiers: Cardiac valve disease etiology: nonrheumatic Qualified Code(s): I35.0 - Nonrheumatic aortic (valve) stenosis Code(s): I35.0 - Nonrheumatic aortic (valve) stenosis (3) Acute kidney injury: With slight worsening of creatinine. His blood pressure medication are held. BP is soft with diuresis. Monitor. Avoid hypotension. Possible cardiorenal syndrome. He does state that he takes intermittently 2 tablets of 800 mg ibuprofen for aches and pains. Discussed with him to discontinue NSAIDs. Prostate enlarged on ultrasound. 50mL on PVR. Possible acute kidney injury on chronic kidney disease, although kidneys appear normal. Status: Acute Code(s): N17.9 - Acute kidney failure, unspecified (4) Diabetes mellitus: A1c 8.5. Would benefit from better control. Status: Acute Code(s): E11.9 - Type 2 diabetes mellitus without complications (5) Hypertension: Blood pressures soft. Status: Acute Qualifiers: Hypertension type: essential hypertension Qualified Code(s): I10 - Essential (primary) hypertension Code(s): I10 - Essential (primary) hypertension (6) Hyperlipidemia: Poorly controlled diabetes. Start statin. Status: Acute Qualifiers: Hyperlipidemia type: unspecified Qualified Code(s): E78.5 - Hyperlipidemia, unspecified Code(s): E78.5 - Hyperlipidemia, unspecified Additional A&P Information Hypertrophic nails lower extremities: Family with concerns. Discussed with podiatry nail services not available on inpatient side. Refer for outpatient evaluation for nail care in the setting of diabetes and lower extremity edema. Concern for soft heels: Family concerned that heels feel somewhat soft. Examined. No erythema, no sign of pressure ulcer at this time. It appears he may not be very mobile in bed. Heel protectors encouraged. Attestations Medical Necessity Statement*: Continue admission for assessment and management of acute CHF, cardiomyopathy, possible aortic stenosis in the setting of acute kidney injury on chronic kidney disease. 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
--- NOTE | 2019-08-15 19:51 | PC.NURSE ---
Doppled patient's patient's pedal pulses bilaterally, +3 pedal pulses, on ausculation with doppler and able to palpate pulses. Compression socks applied bilaterally as ordered per physician. care continued.
[2019-08-15 20:57] LABS: Glucose Point of Care 177 mg/dL (70-110)
[2019-08-16] VITALS (9 sets, daily range): BP systolic 89–108; BP diastolic 59–74; PULSE 25–88; RESP 16–25; TEMP 36.4–37; O2SAT 94–96
[2019-08-16] MEDS: TRAMadol 50 mg Tablet PO (02:21)
--- NOTE | 2019-08-16 03:28 | PC.NURSE ---
CHECKED POST RESIDUAL AFTER PATIENT VOIDED, 75 CC'S IN THE BLADDER POST VOID.
[2019-08-16 05:01] LABS: Basophils % 0.4 %; Eosinophils # 0.4 10^3/uL (0.0-0.8); Eosinophils % 4.6 %; Hematocrit 39.7 % (42.0-52.0); Hemoglobin 12.1 g/dL (11.7-16.6); Lymphocytes # 1.8 10^3/uL (0.8-4.8); Lymphocytes % 22.8 %; Mean Corpuscular HGB Conc 30.5 g/dL (30.0-36.0); Mean Corpuscular Hemoglobin 24.7 pg (28.0-34.0); Mean Corpuscular Volume 81.2 fL (80-94); Mean Platelet Volume 9.9 fL (7.4-10.4); Monocytes # 1.3 10^3/uL (0.2-0.9); Monocytes % 16.2 %; Neutrophils # 4.5 10^3/uL (1.8-7.7); Neutrophils % 55.8 %; Nucleated Red Blood Cells % 0 %; Platelet Count 405 10^3/cmm (130-400); Red Blood Count 4.89 10^6/uL (4.1-5.3); Red Cell Distribution Width 15.7 % (12.1-15.1); White Blood Count 8.1 10^3/uL (4.0-10.0)
[2019-08-16 05:24] LABS: Anion Gap 18.3 (5-19); Blood Urea Nitrogen 53 mg/dL (8-23); Calcium 9.8 mg/dL (8.5-10.5); Carbon Dioxide 25 mmol/L (22-29); Chloride 96 mmol/L (98-107); Glucose 181 mg/dL (65-115); Osmolality Calculated 283 mOsm/kg (285-295); Potassium 4.3 mmol/L (3.5-5.1); Sodium 135 mmol/L (136-145)
[2019-08-16] MEDS: enoxaparin 30 mg/0.3 mL Syringe SUBCUT (06:04)
[2019-08-16 06:17] LABS: Glucose Point of Care 191 mg/dL (70-110)
--- NOTE | 2019-08-16 08:00 | DCPLANNER ---
Pg 2 of IM was explained to and signed by pt. on 08/15/19. No questions, copy provided.
[2019-08-16] MEDS: pantoprazole DR 40 mg Tablet PO (08:49)
[2019-08-16] MEDS: FUROsemide 40 mg Tablet PO (08:49)
[2019-08-16] MEDS: aspirin 81 mg EC Tablet PO (08:58)
[2019-08-16] MEDS: carvedilol 3.125 mg Tablet PO ×2 (08:59→19:58)
--- NOTE | 2019-08-16 09:09 | XRR_ITS ---
PROCEDURE INFORMATION: Exam: XR Chest, 2 Views Exam date and time: 08/16/2019 10:25 AM Age: 79 years old Clinical indication: Condition or disease; Other: Pleural effusion TECHNIQUE: Imaging protocol: XR of the chest Views: 2 views. COMPARISON: CR XR chest 1V portable [id number] 08/12/2019 7:49 PM FINDINGS: Lungs: See Pleural Space Finding. Pleural space: Subpulmonic effusion on the right. Mildly improved. Lungs are otherwise well aerated. Heart/Mediastinum: Unremarkable. No cardiomegaly. Bones/joints: Unremarkable. XR/XR chest 2V* [id number] IMPRESSION: Subpulmonic effusion on the right. Mildly improved. Lungs are otherwise well aerated.
--- NOTE | 2019-08-16 09:12 | PM.PN ---
Subjective Subjective: Interval history: Last 24 hours: No events on telemetry. Denies having any chest discomfort. His shortness of breath has significantly improved. He was not able to sleep well last night as he had some shoulder and upper back pain that was relieved with Tylenol and tramadol Medications: Reviewed: Yes Medication Review Details: Current Medications Acetaminophen (Tylenol) 650 mg PO Q6H PRN PRN Reason: Mild/Mod Pain Or Temp >/= 101 Aspirin (Aspirin Ec) 81 mg PO DAILY [facility] Last Admin: 08/15/19 11:08 Dose: 81 mg Documented by: Atorvastatin Calcium (Lipitor) 40 mg PO BEDTIME [facility] Last Admin: 08/14/19 20:56 Dose: 40 mg Documented by: Benzonatate (Tessalon Pearls) 200 mg PO TID PRN PRN Reason: COUGH Last Admin: 08/15/19 06:44 Dose: 200 mg Documented by: Carvedilol (Coreg) 3.125 mg PO Q12H [facility] Last Admin: 08/15/19 12:14 Dose: Not Given Documented by: Dextrose (D50w) 25 ml IVP ONCE PRN; Protocol PRN Reason: hypoglycemia protocol Dextrose (D50w) 50 ml IVP PRN PRN; Protocol PRN Reason: hypoglycemia protocol Enoxaparin Sodium (Lovenox) 30 mg SUBCUT Q24H [facility] Last Admin: 08/15/19 05:40 Dose: 30 mg Documented by: Furosemide (Lasix) 60 mg IVP Q24H [facility] Last Admin: 08/14/19 12:31 Dose: 60 mg Documented by: Glucagon (Glucagen) 1 mg IM ONCE PRN; Protocol PRN Reason: Adult Acute Hypoglycemia Prot. Dextrose (D5w) 500 mls @ 100 mls/hr IV ONCE PRN; Protocol PRN Reason: Adult Acute Hypoglycemia Prot Insulin Aspart (Novolog) 0 unit SUBCUT WM&BEDTIME [facility]; Protocol Last Admin: 08/15/19 07:28 Dose: Not Given Documented by: Morphine Sulfate (Morphine) 4 mg IVP Q4H PRN PRN Reason: SEVERE PAIN Ondansetron HCl (Zofran) 4 mg IVP Q6H PRN PRN Reason: NAUSEA AND VOMITING Pantoprazole Sodium (Protonix) 40 mg PO DAILY [facility] Last Admin: 08/15/19 11:08 Dose: 40 mg Documented by: Vitals/I&O/Wt Last Vital Signs Temp 97.8 F 08/16/19 07:45 Pulse 84 08/16/19 07:45 Resp 19 H 08/16/19 07:45 BP 102/73 08/16/19 07:45 Pulse Ox 96 08/16/19 07:45 08/15/19 08/16/19 08/16/19 22:59 06:59 14:59 Intake Total 1740 / 2220 Output Total 300 / 300 Balance 1740 / 2220 -300 / 1920 Weight last 48 hrs Weight 160 lb 0.5 oz Physical Exam Const: COMMON NORMALS: no apparent distress, average body habitus, oriented x3, alert and well nourished GENERAL APPEARANCE: cooperative, comfortable, well kempt and well developed ORIENTATION/CONSCIOUSNESS: Yes oriented to person, Yes oriented to place and Yes oriented to time HENMT: COMMON NORMALS: hearing grossly normal bilaterally, moist oral mucous membranes and oropharynx normal MOUTH: oral and palatal mucosa normal Eye: COMMON NORMALS: PERRL, EOMs intact bilaterally and conjunctivae normal CONJUNCTIVA: Yes conjunctivae normal SCLERA: sclerae normal PUPIL: Yes PERRL Resp: COMMON NORMALS: clear to auscultation bilaterally and percussion normal EFFORT & INSPECTION: No labored and No audible wheezes AUSCULTATION: clear to auscultation bilaterally, no crackles, no rales, no rhonchi and no wheezes PERCUSSION: percussion normal Cardio: COMMON NORMALS: regular rate, regular rhythm, S1 normal heart sound, S2 normal heart sound and peripheral pulses 2+ throughout JUGULAR VENOUS DISTENTION: JVD PALPATION: normal PMI, no heave, no palpable S3, no palpable S4 and no thrill RATE: regular rate RHYTHM: regular rhythm HEART SOUNDS: S1 normal, S2 normal, no click, no gallops and murmur (Grade 3/6 harsh blowing systolic murmur in aortic area as well as at left lower sternal border) PERIPHERAL PULSES: pulses 2+ throughout GI: COMMON NORMALS: soft to palpation PALPATION: Yes soft Extremity: GENERAL: Yes edema (1-2+ bilateral edema) Neuro: COMMON NORMALS: oriented x3 SENSORIUM/ORIENTATION: Yes alert, Yes oriented to person, Yes oriented to place and Yes oriented to time CRANIAL NERVES: Yes CN normal except as noted Psych: COMMON NORMALS: thought process normal APPEARANCE: Yes well kempt THOUGHT PROCESS: normal thought process ATTENTION/CONCENTRATION: Yes attention grossly intact INSIGHT: insight good JUDGEMENT: judgment good Data : 08/16/19 03:29 08/16/19 03:29 A&P Assessment and plan (1) Systolic CHF, acute: Newly diagnosed ACC/AHA stage C, NYHA class 3 CHF. LVEF=20%. -Possible etiology being multivessel CAD versus viral myocarditis versus in setting of longstanding severe . -Held IV Lasix yesterday. I will start him back on Lasix 40 mg this morning. - UO not documented properly. - started on low dose coreg. -Unable to add ACEI/ARB/ARNI later based on renal function. -I discussed LifeVest with patient and his daughter in detail. I will get that ordered. -I had planned for stress test today. However I had a prolonged discussion with patient and his extended family today including his son and daughter yesterday. They expressed their understanding about the need of stress testing. They would like to hold off on it presently though. They feel patient is doing so much better. There is a history of patient's father apparently passing away while undergoing coronary angiogram and that is making it difficult for them to make any decisions. -Disease etiology management options and prognosis was discussed in detail with the patient. Greater than 40 minutes were spent with the patient and the family. -Follow-up with me in heart care services in 1 week. BMP in 1 week. -Patient was advised on importance of blood pressure and heart rate log twice a day as well as daily weight. Importance of salt and fluid restriction was discussed in detail as well. Status: Acute Code(s): I50.21 - Acute systolic (congestive) heart failure (2) Aortic stenosis: Possible Low flow low gradient severe on echo. He would benefit from DSE to differentiate from pseudo . -Patient's family would like to hold off of any testing until they are seen outpatient in the office. -They would like to take some time to grasp the overall situation and then make their decision regarding further testing. Status: Acute Qualifiers: Cardiac valve disease etiology: nonrheumatic Qualified Code(s): I35.0 - Nonrheumatic aortic (valve) stenosis Code(s): I35.0 - Nonrheumatic aortic (valve) stenosis (3) Hypertension: BP running low. Patient denies any prior history of hypertension and states that he was on lisinopril given his diabetes. Status: Acute Qualifiers: Hypertension type: essential hypertension Qualified Code(s): I10 - Essential (primary) hypertension Code(s): I10 - Essential (primary) hypertension (4) Hyperlipidemia: History of intolerance to statin. On colesevelam at home. Status: Acute Qualifiers: Hyperlipidemia type: unspecified Qualified Code(s): E78.5 - Hyperlipidemia, unspecified Code(s): E78.5 - Hyperlipidemia, unspecified (5) Diabetes mellitus: On oral hypoglycemic agents at home. Status: Acute Qualifiers: Diabetes mellitus type: type 2 Diabetes mellitus halfway insulin use: without halfway use Diabetes mellitus complication status: with kidney complications Diabetes mellitus complication detail: with nephropathy Qualified Code(s): E11.21 - Type 2 diabetes mellitus with diabetic nephropathy Code(s): E11.9 - Type 2 diabetes mellitus without complications Additional A&P Information Acute kidney injury on underlying CKD (likely diabetic nephropathy): Renal function has improved with BUN 64-->53 and creatinine 2.6-->2.2. Thrombocytosis: Continue aspirin Right pleural effusion: Follow-up on repeat chest x-ray Thank you for allowing me to participate in patient's care. Please feel free to call with questions or concerns. Attestations Medical Necessity Statement*: If patient responds well with good urine output today he may potentially be discharged later this afternoon once he is fitted with LifeVest. 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
[2019-08-16 12:25] LABS: Glucose Point of Care 116 mg/dL (70-110)
--- NOTE | 2019-08-16 14:14 | PM.PN ---
Subjective Subjective: Interval history: Isaiah reports he is breathing easier. Able to be up and around the room. Medications: Reviewed: Yes Vitals/I&O/Wt Last Vital Signs Temp 98.6 F 08/16/19 11:52 Pulse 77 08/16/19 11:52 Resp 19 H 08/16/19 11:52 BP 96/65 08/16/19 11:52 Pulse Ox 95 08/16/19 11:52 08/15/19 08/16/19 08/16/19 22:59 06:59 14:59 Intake Total 1740 / 2220 540 / 540 Output Total 300 / 300 2300 / 2300 Balance 1740 / 2220 -300 / 1920 -1760 / -1760 Weight last 48 hrs Weight 72.589 kg Physical Exam Narrative: EXAM NARRATIVE: General exam is no apparent distress Cardiovascular regular rate and rhythm with a 3/6 systolic murmur Lungs clear, diminished breath sounds bilaterally Abdomen is soft, positive bowel sounds Extremities trace edema Data : 08/16/19 03:29 08/16/19 03:29 Other data: Chest x-ray demonstrates blunting right costophrenic angle consistent with small effusion A&P Assessment and plan (1) Systolic CHF, acute: Continues to slowly improve. Diuresis held yesterday. Restarted today at Lasix 40 mg daily. Echocardiogram demonstrates cardiomyopathy, EF 20%. Family does not want him to undergo a nuclear stress test currently. Has probable severe aortic stenosis as well. Cardiology has been consulted. LifeVest is being fitted today. Status: Acute Code(s): I50.21 - Acute systolic (congestive) heart failure (2) Aortic stenosis: Probable severe aortic stenosis, versus low flow due to cardiomyopathy. Status: Acute Qualifiers: Cardiac valve disease etiology: nonrheumatic Qualified Code(s): I35.0 - Nonrheumatic aortic (valve) stenosis Code(s): I35.0 - Nonrheumatic aortic (valve) stenosis (3) Acute kidney injury: Secondary to diuresis. Diuretics have been held and renal function has improved Small dose oral Lasix restarted today. Renal ultrasound without structural abnormalities Status: Acute Code(s): N17.9 - Acute kidney failure, unspecified (4) Diabetes mellitus: A1c 8.5 Status: Acute Code(s): E11.9 - Type 2 diabetes mellitus without complications (5) Hypertension: Stable Status: Acute Qualifiers: Hypertension type: essential hypertension Qualified Code(s): I10 - Essential (primary) hypertension Code(s): I10 - Essential (primary) hypertension (6) Hyperlipidemia: Continue statin Status: Acute Qualifiers: Hyperlipidemia type: unspecified Qualified Code(s): E78.5 - Hyperlipidemia, unspecified Code(s): E78.5 - Hyperlipidemia, unspecified Attestations Medical Necessity Statement*: Needs continued hospital stay for adjustment of medications secondary to acute systolic congestive heart failure Coding Level of Care Code Acute Demolition Specialist for [facility] F[facility] Diagnoses Systolic CHF, acute I50.21 Aortic stenosis I35.0 Cardiac valve disease etiology: nonrheumatic Acute kidney injury N17.9 Diabetes mellitus E11.9 Hypertension I10 Hypertension type: essential hypertension Hyperlipidemia E78.5 Hyperlipidemia type: unspecified
--- NOTE | 2019-08-16 14:36 | PC.NURSE ---
Life Vest Fitting RADHA Barrow in room for teaching and education on life vest device.
--- NOTE | 2019-08-16 16:24 | PC.CHAP ---
Addendum entered by Carlos Lofton 08/16/19 16:28: Patient was said to not be able to rest well because he was not able to ?turn off his brain?. Administrative Personal Assistant prayed with patient and family member for rest and healing. Patient was visited by Administrative Personal Assistantangeli Lofton. 10 minute visit Original Note: Pastoral Care Encounter/Spiritual Assessment Type of Contact [] Declined foundry tender visit [x] Patient/Family/Request visit [] Outpatient visit [] Follow-up visit [] Physician referral [] Code/Alert [] Routine visit [] Staff referral [] Actively dying [] Patient sleeping [x] Family support [] [] Out of room [] Palliative care [] [] Receiving care in room [] Pre-surgical visit [] Trauma [] Long length of stay [] ICU visit [] Other: Relational/Emotional Strength [x] Patient feels connected with others/family/visitors/staff [] Distress [] Loneliness/isolation [] Abandonment Spirituality of Patient [x] Person of Yojana [] Attends Religion of their Yojana [x] Believes in Prayer [] Reads Bible or Orthodox materials [] There are Spiritual issues to be addressed Administrative Personal Assistant Interventions [x] Prayer [x] Active listening [x] Non-anxious presence [x] Spiritual/emotional support [] Crisis/trauma care [] Spiritual counseling [] Bereavement support [] Provided bereavement packet [] Provided Bible/devotional materials [] Provided toy/stuffed animal, coloring book to patient or family member [] Provided Communion [] Anointing/[place] [] Salvation [x] Completed spiritual assessment [] Other: Impact on Illness or Injury [] Angry [] Fearful [] Anxious [] Often cries [x] Exhaustion [] Unable to work [] Unable to attend hindu [] Unable to walk/stand [] Unable to read [] Unable to drive [] Unable to eat/drink [x] Unable to sleep [] Unable to be with family [] Patient intubated [] Other: Summary Patient stated that he was unable to sleep well and family member said it was because of him not being able to turn his bra Time spent with patient
[2019-08-16 17:01] LABS: Glucose Point of Care 169 mg/dL (70-110)
[2019-08-16] MEDS: acetaminophen 325 mg Tablet 650 MG PO (19:58)
[2019-08-16 20:31] LABS: Glucose Point of Care 197 mg/dL (70-110)
[2019-08-16] MEDS: trazodone 50 mg Tablet PO (21:03)
--- NOTE | 2019-08-17 00:35 | PC.NURSE ---
Patient was offered a shower. Patient stated that he would like to take one in the morning after breakfast.
[2019-08-17 04:00] VITALS: BP 106/74; PULSE 74; RESP 22; TEMP 36.7; O2SAT 96
[2019-08-17 04:24] LABS: Anion Gap 17.2 (5-19); Blood Urea Nitrogen 52 mg/dL (8-23); Calcium 9.4 mg/dL (8.5-10.5); Carbon Dioxide 25 mmol/L (22-29); Chloride 98 mmol/L (98-107); Glucose 107 mg/dL (65-115); Osmolality Calculated 281 mOsm/kg (285-295); Potassium 4.2 mmol/L (3.5-5.1); Sodium 136 mmol/L (136-145)
[2019-08-17] MEDS: enoxaparin 30 mg/0.3 mL Syringe SUBCUT (05:40)
[2019-08-17 06:44] LABS: Glucose Point of Care 114 mg/dL (70-110)
[2019-08-17 08:00] VITALS: BP 85/59; PULSE 78; RESP 26
[2019-08-17] MEDS: aspirin 81 mg EC Tablet PO (08:21)
[2019-08-17] MEDS: pantoprazole DR 40 mg Tablet PO (08:21)
[2019-08-17] MEDS: FUROsemide 40 mg Tablet PO (08:21)
--- NOTE | 2019-08-17 08:42 | PM.PN ---
Subjective Subjective: Interval history: Last 24 hours: No events on telemetry. Denies having any chest discomfort. His shortness of breath has significantly improved. Medications: Reviewed: Yes Medication Review Details: Current Medications Acetaminophen (Tylenol) 650 mg PO Q6H PRN PRN Reason: Mild/Mod Pain Or Temp >/= 101 Aspirin (Aspirin Ec) 81 mg PO DAILY [facility] Last Admin: 08/15/19 11:08 Dose: 81 mg Documented by: Atorvastatin Calcium (Lipitor) 40 mg PO BEDTIME [facility] Last Admin: 08/14/19 20:56 Dose: 40 mg Documented by: Benzonatate (Tessalon Pearls) 200 mg PO TID PRN PRN Reason: COUGH Last Admin: 08/15/19 06:44 Dose: 200 mg Documented by: Carvedilol (Coreg) 3.125 mg PO Q12H [facility] Last Admin: 08/15/19 12:14 Dose: Not Given Documented by: Dextrose (D50w) 25 ml IVP ONCE PRN; Protocol PRN Reason: hypoglycemia protocol Dextrose (D50w) 50 ml IVP PRN PRN; Protocol PRN Reason: hypoglycemia protocol Enoxaparin Sodium (Lovenox) 30 mg SUBCUT Q24H [facility] Last Admin: 08/15/19 05:40 Dose: 30 mg Documented by: Furosemide (Lasix) 60 mg IVP Q24H [facility] Last Admin: 08/14/19 12:31 Dose: 60 mg Documented by: Glucagon (Glucagen) 1 mg IM ONCE PRN; Protocol PRN Reason: Adult Acute Hypoglycemia Prot. Dextrose (D5w) 500 mls @ 100 mls/hr IV ONCE PRN; Protocol PRN Reason: Adult Acute Hypoglycemia Prot Insulin Aspart (Novolog) 0 unit SUBCUT WM&BEDTIME [facility]; Protocol Last Admin: 08/15/19 07:28 Dose: Not Given Documented by: Morphine Sulfate (Morphine) 4 mg IVP Q4H PRN PRN Reason: SEVERE PAIN Ondansetron HCl (Zofran) 4 mg IVP Q6H PRN PRN Reason: NAUSEA AND VOMITING Pantoprazole Sodium (Protonix) 40 mg PO DAILY [facility] Last Admin: 08/15/19 11:08 Dose: 40 mg Documented by: Vitals/I&O/Wt Last Vital Signs Temp 98.1 F 08/17/19 04:00 Pulse 78 08/17/19 08:00 Resp 26 H 08/17/19 08:00 BP 85/59 08/17/19 08:00 Pulse Ox 96 08/17/19 04:00 08/16/19 08/17/19 08/17/19 22:59 06:59 14:59 Intake Total 360 / 1900 300 / 2200 Output Total 450 / 2750 Balance -90 / -850 300 / -550 Intake & Output 08/15/19 08/16/19 08/17/19 08/18/19 06:59 06:59 06:59 06:59 Intake Total 600 / 600 2220 / 2220 2200 / 2200 Output Total 2080 / 2080 300 / 300 2750 / 2750 Balance -1480 / -1480 1920 / 1920 -550 / -550 Weight 160 lb 0.5 oz 162 lb 3.2 oz Weight last 48 hrs Weight 162 lb 3.2 oz Physical Exam Const: COMMON NORMALS: no apparent distress, average body habitus, oriented x3, alert and well nourished GENERAL APPEARANCE: cooperative, comfortable, well kempt and well developed ORIENTATION/CONSCIOUSNESS: Yes oriented to person, Yes oriented to place and Yes oriented to time HENMT: COMMON NORMALS: hearing grossly normal bilaterally, moist oral mucous membranes and oropharynx normal MOUTH: oral and palatal mucosa normal Eye: COMMON NORMALS: PERRL, EOMs intact bilaterally and conjunctivae normal CONJUNCTIVA: Yes conjunctivae normal SCLERA: sclerae normal PUPIL: Yes PERRL Resp: COMMON NORMALS: clear to auscultation bilaterally and percussion normal EFFORT & INSPECTION: No labored and No audible wheezes AUSCULTATION: clear to auscultation bilaterally, no crackles, no rales, no rhonchi and no wheezes PERCUSSION: percussion normal Cardio: COMMON NORMALS: regular rate, regular rhythm, S1 normal heart sound, S2 normal heart sound and peripheral pulses 2+ throughout JUGULAR VENOUS DISTENTION: JVD PALPATION: normal PMI, no heave, no palpable S3, no palpable S4 and no thrill RATE: regular rate RHYTHM: regular rhythm HEART SOUNDS: S1 normal, S2 normal, no click, no gallops and murmur (Grade 3/6 harsh blowing systolic murmur in aortic area as well as at left lower sternal border) PERIPHERAL PULSES: pulses 2+ throughout GI: COMMON NORMALS: soft to palpation PALPATION: Yes soft Extremity: GENERAL: Yes edema (1+ bilateral edema) Neuro: COMMON NORMALS: oriented x3 SENSORIUM/ORIENTATION: Yes alert, Yes oriented to person, Yes oriented to place and Yes oriented to time CRANIAL NERVES: Yes CN normal except as noted Psych: COMMON NORMALS: thought process normal APPEARANCE: Yes well kempt THOUGHT PROCESS: normal thought process ATTENTION/CONCENTRATION: Yes attention grossly intact INSIGHT: insight good JUDGEMENT: judgment good Data : 08/16/19 03:29 08/17/19 03:10 CXR: Radiologist's impression: Subpulmonic effusion on the right. Mildly improved. Lungs are otherwise well aerated A&P Assessment and plan (1) Systolic CHF, acute: Newly diagnosed ACC/AHA stage C, NYHA class 3 CHF. LVEF=20%. -Possible etiology being multivessel CAD versus viral myocarditis versus in setting of longstanding severe . -continue Lasix 40 mg. - started on low dose coreg. However, not really getting it -Unable to add ACEI/ARB/ARNI later based on renal function. plan to add that as an outpatient. -He has been fitted with LifeVest. -I had a prolonged discussion with patient and his extended family today including his son and daughter yesterday. They expressed their understanding about the need of stress testing. They would like to hold off on it presently though. They feel patient is doing so much better. There is a history of patient's father apparently passing away while undergoing coronary angiogram and that is making it difficult for them to make any decisions. -Disease etiology management options and prognosis was discussed in detail with the patient. Greater than 40 minutes were spent with the patient and the family. -Follow-up with me in heart care services in 1 week. BMP in 1 week. -Patient was advised on importance of blood pressure and heart rate log twice a day as well as daily weight. Importance of salt and fluid restriction was discussed in detail as well. Status: Acute Code(s): I50.21 - Acute systolic (congestive) heart failure (2) Aortic stenosis: Possible Low flow low gradient severe on echo. He would benefit from DSE to differentiate from pseudo . -Patient's family would like to hold off of any testing until they are seen outpatient in the office. -They would like to take some time to grasp the overall situation and then make their decision regarding further testing. Status: Acute Qualifiers: Cardiac valve disease etiology: nonrheumatic Qualified Code(s): I35.0 - Nonrheumatic aortic (valve) stenosis Code(s): I35.0 - Nonrheumatic aortic (valve) stenosis (3) Hypertension: BP running low. Patient denies any prior history of hypertension and states that he was on lisinopril at home given his diabetes. Status: Acute Qualifiers: Hypertension type: essential hypertension Qualified Code(s): I10 - Essential (primary) hypertension Code(s): I10 - Essential (primary) hypertension (4) Hyperlipidemia: History of intolerance to statin. On colesevelam at home. Status: Acute Qualifiers: Hyperlipidemia type: unspecified Qualified Code(s): E78.5 - Hyperlipidemia, unspecified Code(s): E78.5 - Hyperlipidemia, unspecified (5) Diabetes mellitus: On oral hypoglycemic agents at home. 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 Thrombocytosis: Continue aspirin Right pleural effusion: Follow-up chest x-ray with improved pleural effusion Thank you for allowing me to participate in patient's care. Please feel free to call with questions or concerns. Attestations Medical Necessity Statement*: Stable to be discharged from cardiac stand point Coding Level of Care Code Acute Picker Tender for [facility] Fwd Exam Comprehensive Diagnoses Systolic CHF, acute I50.21 Aortic stenosis I35.0 Cardiac valve disease etiology: nonrheumatic Hypertension I10 Hypertension type: essential hypertension Hyperlipidemia E78.5 Hyperlipidemia type: unspecified Diabetes mellitus E11.21 Diabetes mellitus complication detail: with nephropathy Diabetes mellitus complication status: with kidney complications Diabetes mellitus oracle database consultant insulin use: without oracle database consultant use Diabetes mellitus type: type 2
--- NOTE | 2019-08-17 09:17 | P.DS_ITS ---
Discharge Providers Date of Admission: 08/12/19 21:15 Date of Discharge: August 17, 2019 Attending Provider at Admission: Margret Santizo MD Attending Provider at Discharge: Yung Hall MD Primary Care Provider: uJlisa Chilel MD Diagnoses at Discharge Discharge Diagnosis (1) Systolic CHF, acute: Status: Acute Problem details: Compensated currently. Will discharge on statin, aspirin, low-dose beta- sofia, LifeVest (2) Aortic stenosis: Status: Acute Problem details: Further follow-up with cardiology as an outpatient Qualifiers: Cardiac valve disease etiology: nonrheumatic Qualified Code(s): I35.0 - Nonrheumatic aortic (valve) stenosis (3) Hypertension: Status: Acute Problem details: Controlled Qualifiers: Hypertension type: essential hypertension Qualified Code(s): I10 - Essential (primary) hypertension (4) Hyperlipidemia: Status: Acute Problem details: Lipitor initiated Qualifiers: Hyperlipidemia type: unspecified Qualified Code(s): E78.5 - Hyperlipidemia, unspecified (5) Diabetes mellitus: Status: Acute Problem details: Reduce Januvia for renal function, hold oral sulfonylurea Qualifiers: Diabetes mellitus type: type 2 Diabetes mellitus fpc insulin use: without terminal system operator use Diabetes mellitus complication status: with kidney complications Diabetes mellitus complication detail: with nephropathy Qualified Code(s): E11.21 - Type 2 diabetes mellitus with diabetic nephropathy Reason for Visit Reason for Visit: Reason For Visit: ELEVATED TROPONIN PER [facility] Course Hospital Course: Isaiah is an 79-year-old white male who presented to the hospital with significant edema consistent with heart failure. Troponin was elevated. Diuresis was initiated. Cardiology was consulted. Echocardiogram ultimately showed EF of 20%. There was no evidence for acute myocardial infarction. Echocardiogram also showed probable severe aortic stenosis versus overestimation secondary to low flow. With diuresis he did have elevation of his creatinine. Diuresis was discontinued, and eventually restarted at a lower oral dose. Stress test was offered but family refused at this time. By August 17, he was ready for discharge home. He was up ambulating, had no chest discomfort, and seemed compensated from a cardiac standpoint. Physical Exam Narrative: EXAM NARRATIVE: General exam no apparent distress Cardiovascular regular rate and rhythm with 2/6 systolic murmur heard best in the aortic area Lungs clear but with diminished breath sounds at the bases Extremities with 1+ edema. Discharge Data Data Completed and Pending: Completed Studies During Hospitalization Category Date Time Status XR chest 1V demond ble [id number] Stat Exams 08/12/19 19:29 Completed XR chest 2V* [id number] Routine Exams 08/16/19 09:09 Completed CV echo complete* [id number] Routine Ultrasound 08/13/19 02:34 Completed US renal BI with bladder Routine Ultrasound 08/13/19 08:47 Completed Labs from last 24 hours 08/17/19 08/17/19 08/16/19 06:36 03:10 20:24 Sodium 136 Potassium 4.2 Chloride 98 Carbon Dioxide 25 Anion Gap 17.2 BUN 52 H Creatinine 1.8 H Glucose 107 POC Glucose 114 197 Calculated Osmolal ity 281 L Calcium 9.4 08/16/19 08/16/19 16:52 11:51 Sodium Potassium Chloride Carbon Dioxide Anion Gap BUN Creatinine Glucose POC Glucose 169 116 Calculated Osmolal ity Calcium Vitals: Last Vital Signs Temp 98.1 F 08/17/19 04:00 Pulse 78 08/17/19 08:00 Resp 26 H 08/17/19 08:00 BP 85/59 08/17/19 08:00 Pulse Ox 96 08/17/19 04:00 Discharge Plan Discharge Patient Disposition: Home Health Service Condition: Stable Prescriptions: New trazodone 50 mg Tablet 50 mg PO BEDTIME PRN (Reason: Insomnia) Qty: 30 RF: 0 Januvia 50 mg tablet 50 mg PO DAILY Qty: 30 RF: 0 carvedilol 3.125 mg Tablet 3.125 mg PO Q12H Qty: 60 RF: 0 furosemide 40 mg Tablet 40 mg PO DAILY@0800 Qty: 30 RF: 0 atorvastatin [Lipitor] 40 mg tablet 40 mg PO DAILY Qty: 30 RF: 0 Continued aspirin [Adult Low Dose Aspirin] 81 mg tablet,delayed release (DR/EC) 81 mg PO DAILY RF: 0 omega-3 fatty acids-vitamin E 1,000 mg capsule 1,000 mg PO DAILY RF: 0 omeprazole 40 mg capsule,delayed release(DR/EC) 40 mg PO DAILY RF: 0 (DME) lancets 31 gauge misc See Rx Instructions .ROUTE .MEDSUPPLY Qty: 100 RF: 3 Discontinued glimepiride 4 mg tablet 4 mg PO DAILY RF: 0 Januvia 100 mg tablet 100 mg PO DAILY RF: 0 lisinopril 10 mg tablet 10 mg PO DAILY RF: 0 fexofenadine [Ev Allergy] 180 mg tablet 180 mg PO DAILY Qty: 30 RF: 2 colesevelam [WelChol] 625 mg tablet 625 mg PO DAILY Qty: 30 RF: 1 furosemide 20 mg tablet 20 mg PO BID 7 Days Qty: 14 RF: 0 doxycycline hyclate 100 mg capsule 100 mg PO BID 7 Days Qty: 14 RF: 0 Other Ambulatory Orders: DME: Life Vest (Order) Location: None Selected Ordered By: Lilo Tovar DME: Miscellaneous (Order) Location: None Selected Ordered By: Yung Hall Referrals: Christen Abreu MD [Family Provider] - 4-7 days (BMP on follow up) Lilo Tovar MD [Physician] - 7-10 days Discharge Diet: Cardiac Discharge Activity: Increase activity as tolerated Patient Instructions: Low Sodium Diet (DC), CHF Stoplight Activity Restrictions/Additional Instructions: Weigh daily. Notify physician or cardiology if greater than 3 pound weight gain 2 days in a row. Take all medicine as prescribed. Limit fluid to less than 1500 mL/day. You will need a blood test when you follow-up with your primary care provider. Keep a list of your blood sugars as well. Discharge Attestations Time Spent in Discharge Care*: greater than 30 min Quality Metrics Clinical Quality Measures During this hospital stay, did patient experience: None Coding Level of Care Code Acute Director Of Customer Acquisition for [facility] Diagnoses Systolic CHF, acute I50.21 Aortic stenosis I35.0 Cardiac valve disease etiology: nonrheumatic Hypertension I10 Hypertension type: essential hypertension Hyperlipidemia E78.5 Hyperlipidemia type: unspecified Diabetes mellitus E11.21 Diabetes mellitus type: type 2 Diabetes mellitus terminal system operator insulin use: without terminal system operator use Diabetes mellitus complication status: with kidney complications Diabetes mellitus complication detail: with nephropathy
[2019-08-17 10:25] VITALS: BP 104/76; PULSE 77; RESP 20; TEMP 37.1; O2SAT 96
[2019-08-17 10:34] VITALS: BP 104/76; PULSE 77; RESP 20; TEMP 37.1; O2SAT 96
== END 2019-08-17 11:20 | disposition home health service (06) | DRG 291 ==
LOC: ER 20:12 → CSU 22:59
PROVIDERS: Internal Medicine; Nurse Practitioner Family; Admitting Provider Student in an Organized Health Care Education/Training Program; Emergency Provider Emergency Medicine; Family Provider Family Medicine; PCP Family Medicine; Visit Provider Internal Medicine
DX: I13.0 Hypertensive heart and chronic kidney disease with heart failure and stage 1 through stage 4 chronic kidney disease, or unspecified chronic kidney disease (principal); I50.21 Acute systolic (congestive) heart failure; N17.9 Acute kidney failure, unspecified; E78.5 Hyperlipidemia, unspecified; I35.0 Nonrheumatic aortic (valve) stenosis; J30.9 Allergic rhinitis, unspecified; Z79.82 Long term (current) use of aspirin; Z79.899 Other long term (current) drug therapy; E11.22 Type 2 diabetes mellitus with diabetic chronic kidney disease; D47.3 Essential (hemorrhagic) thrombocythemia
CPT/HCPCS: 12345; 36415; 36416; 71045; 71046; 76770; 76857; 80048; 80053; 80061; 81003; 82550; 82962; 83036; 83880; 84156; 84443; 84484; 85025; 93005; 93306; 96372; 96375; 99282; J1650; J1815; J1940

== ENCOUNTER → 2019-08-26 10:09 | Outpatient (BNVA) | payer MEDICARE, SELFPAY | PROVIDERS: Family Provider Family Medicine; PCP Family Medicine; Visit Provider Internal Medicine Cardiovascular Disease | DX: I50.21 Acute systolic (congestive) heart failure (principal) | CPT/HCPCS: 80048; 83735; 83880 ==

== ENCOUNTER → 2019-08-31 13:39 | Outpatient (BNVA) | payer MEDICARE, SELFPAY | PROVIDERS: Family Provider Family Medicine; PCP Family Medicine; Visit Provider Family Medicine | DX: R06.02 Shortness of breath (principal) | CPT/HCPCS: 71046 ==

== ENCOUNTER 2019-09-03 14:30 | Emergency (ER) | payer MEDICARE, SELFPAY ==
[2019-09-03] VITALS (8 sets, daily range): BP systolic 77–108; BP diastolic 52–67; PULSE 59–63; RESP 16; TEMP 36.6–36.9; O2SAT 93–98; BMI 20.5
--- NOTE | 2019-09-03 14:51 | XR_ITS ---
WS: [id number] Portable AP upright chest, 09/03/2019 Clinical Data: cough/congestion Comparison: PA and lateral chest, 08/31/2019. Findings: No nodules, masses or effusions are seen. The heart is enlarged. The pulmonary vascularity is not increased. No pneumonia or pneumothorax is seen. The aortic arch and descending aorta show tor tuosity XR/XR chest 1V portable 32019 Impression: Cardiomegaly and atherosclerosis.
--- NOTE | 2019-09-03 14:52 | ECG_ITS ---
Measurements Intervals [place] Rate: 62 P: 42 OR: 204 QRS: 3 QRSD: 91 T: 125 QT: 423 QTc: 430 SINUS RHYTHM POSSIBLE LEFT ATRIAL ENLARGEMENT [-0.1mV P WAVE IN V1/V2] POSSIBLE ANTERIOR MYOCARDIAL INFARCTION , OF INDETERMINATE AGE [30 ms Q WAVE IN V3/V4, OR R < 0.2 mV IN V4] MODERATE T-WAVE ABNORMALITY, CONSIDER LATERAL ISCHEMIA [-0.1+ mV T WAVE IN I/aVL/V5/V6] Left ventricular hypertrophy Compared to ECG 08/13/2019 01:11:55 T-wave abnormality now present Possible ischemia now present Myocardial infarct finding still present Electronically Signed On 09-03-2019 15:38:38 CDT by Mil Kee M.D. [email or web address]
[2019-09-03 15:15] LABS: Basophils # 0.1 10^3/uL (0.0-0.1); Basophils % 0.5 %; Eosinophils # 0.6 10^3/uL (0.0-0.8); Eosinophils % 5.4 %; Hematocrit 41.8 % (42.0-52.0); Hemoglobin 12.9 g/dL (11.7-16.6); Lymphocytes # 1.7 10^3/uL (0.8-4.8); Lymphocytes % 16.1 %; Mean Corpuscular HGB Conc 30.9 g/dL (30.0-36.0); Mean Corpuscular Hemoglobin 25.3 pg (28.0-34.0); Mean Platelet Volume 9.5 fL (7.4-10.4); Monocytes # 1.4 10^3/uL (0.2-0.9); Monocytes % 13.5 %; Neutrophils # 6.8 10^3/uL (1.8-7.7); Nucleated Red Blood Cells % 0 %; Platelet Count 355 10^3/cmm (130-400); Red Cell Distribution Width 16.3 % (12.1-15.1); White Blood Count 10.7 10^3/uL (4.0-10.0)
[2019-09-03 15:39] LABS: Alanine Aminotransferase 32 U/L (0-41); Albumin Level 3.8 g/dL (3.5-5.2); Alkaline Phosphatase 141 IU/L (40-130); Anion Gap 17.9 (5-19); Aspartate Amino Transferase 35 U/L (0-40); Blood Urea Nitrogen 38 mg/dL (8-23); Calcium 9.8 mg/dL (8.5-10.5); Carbon Dioxide 26 mmol/L (22-29); Chloride 92 mmol/L (98-107); Globulin 3.4 g/dL (1.3-4.6); Glucose 286 mg/dL (65-115); NT Pro B Type Natriuretic Pept 28285 pg/mL (0-450); Osmolality Calculated 280 mOsm/kg (285-295); Potassium 4.9 mmol/L (3.5-5.1); Sodium 131 mmol/L (136-145); Total Bilirubin 0.7 mg/dL (0.15-1.2); Total Protein 7.2 g/dL (6.6-8.7)
--- NOTE | 2019-09-03 15:42 | PC.NURSE ---
Patient family brought patient in for persistent cough and increasing weakness over the past several weeks to months. Patient's family reports that patient has experienced urinary incontinence since being on Lasix. Patient was hospitalized for suspected CHF around the beginning of the month. Patient continues to have decreased appetite as well.
--- NOTE | 2019-09-03 16:02 | ED_ITS ---
Documented by User: FERNANDO Hernandez 09/04/19 07:15 HPI - General Adult General: Chief complaint: General Medical Stated complaint: fall/weakness Time Seen by Provider: 09/03/19 14:51 Source: family Mode of arrival: wheelchair Limitations: no limitations History of Present Illness: HPI narrative: Patient is an 79-year-old male who presents to ED today along with his son and daughter for complaints of a cough, drowsiness, and weakness that has been present over the past week and a half. Daughter states the cough initially began back in July and family stated they believed it was due to poor living conditions and exposure to mold in the home. Daughter states she moved patient out of the home to live with her and patient was started on Ev (no longer taking this) by his PCP. She states that the cough initially improved but has returned. Daughter states that shortly after moving in with her, patient began developing shortness of breath and swelling to his lower extremities. He was subsequently seen in the emergency department and diagnosed with acute CHF. He was admitted to the hospital service for several days for evaluation. During that visit patient had an echocardiogram which showed an EF of 20%. Cardiology consult Dr. Tovar had wanted to perform an angiogram but could not due to patient's kidney functions. She also spoke to patient about a chemical stress test however family wanted to hold off on this at the time. Family states since the discharge they have been able to keep the fluid off of his legs with 20 mg of Lasix daily. Daughter has been giving patient cough and cold medication in addition to allergy meds (benadryl) to help with his bothersome cough. She isn't sure if this might be causing his drowsiness and weakness. She does state that the allergy/cough/cold meds do seem to be helping with his cough. Associated symptoms: Deny chest pain, dyspnea, headache(s), nausea, rash, palpitations, syncope or vomiting Review of Systems Const: Reports: change in appetite and change in weight; Denies: fever, chills or body aches Eyes: Denies: change in vision or blurry vision ENMT: Denies: throat pain, enlarged tonsils or painful swallowing Card: Denies: chest pain, palpitations, irregular heart rhythm, edema, swelling of feet/ankles, lightheadedness, syncope, pre-syncope, shortness of breath on exertion, shortness of breath when lying down or leg pain with exertion Resp: Reports: non-productive cough and chest congestion; Denies: shortness of breath or coughing up blood GI: Denies: abdominal pain, nausea, vomiting or diarrhea : Denies: flank pain, difficulty urinating, painful urination, urinary frequency or urinary urgency Musc: Denies: neck pain or back pain Skin/Breast: Denies: rash Neuro: Denies: headache, numbness in extremities or changes in sensation PFSH ED PFSH: Social History Smoking and tobacco status: never smoked Physical Exam Const: COMMON NORMALS: no apparent distress, average body habitus, oriented x3, no limitations, healthy appearing, alert and well nourished ORIENTATION/CONSCIOUSNESS: Yes oriented to person, Yes oriented to place and Yes oriented to time OTHER: orthostatics being performed in the room and were normal HENMT: COMMON NORMALS: normocephalic and head/scalp atraumatic HEAD & SCALP: normocephalic and atraumatic Eye: COMMON NORMALS: PERRL, EOMs intact bilaterally, conjunctivae normal and no scleral icterus CONJUNCTIVA: Yes conjunctivae normal PUPIL: Yes PERRL Resp: COMMON NORMALS: normal respiratory effort and clear to auscultation bilaterally AUSCULTATION: clear to auscultation bilaterally Cardio: COMMON NORMALS: regular rate and regular rhythm RATE: regular rate RHYTHM: regular rhythm HEART SOUNDS: murmur GI: COMMON NORMALS: normal to inspection, nondistended, normoactive bowel sounds, soft to palpation, non-tender, no hepatosplenomegaly and no masses PALPATION: Yes soft and Yes no hepatosplenomegaly Extremity: COMMON NORMALS: normal to inspection and full ROM OTHER: no LE edema Neuro: AGUSTINA COMA SCALE: document GCS findings Agustina coma scale eye opening: Spontaneous [place] coma scale verbal response: Orientated [place] coma scale motor response: Obey commands [place] coma scale total score: 15 COMMON NORMALS: oriented x3, moves all extremities, no focal motor deficits and no sensory deficits noted SENSORIUM/ORIENTATION: Yes alert, Yes oriented to person, Yes oriented to place and Yes oriented to time SPEECH: speech normal GAIT: Yes normal gait Skin: COMMON NORMALS: no rashes or lesions noted GENERAL SKIN EXAM: no rashes or lesions noted Course Vital Signs: Vital signs: Vital Signs Temperature 98.4 F 09/03/19 18:52 Pulse Rate 60 09/03/19 18:52 Respiratory Rate 16 09/03/19 18:52 Blood Pressure 108/61 09/03/19 18:52 Pulse Oximetry 95 09/03/19 18:52 MDM - General Adult MDM Narrative: Medical decision making narrative: Patient was ambulated here in the emergency department and did very well. Orthostatics were negative. Patient's labs today showing a BUN/Cr of 38/1.7 which seems to be near patient's baseline. His baseline troponin is 80 which is most likely due to his CHF. This is much lower than when he was in the hospital and delta trop was negative. EKG shows no acute changes from previous. BNP today is approximately 28,000 compared to 20,000 when he was seen with his follow-up visit with Dr. Tovar-when he was admitted to the hospital it was over 40,000. UA looks clean. His blood pressure is at his norm per family (100-110s/60s). CXR shows cardiomegaly but no acute changes from his most recent. He has no clinical signs of fluid over load on this visit. There is nothing to suggest infectious cause for his symptoms. Differential diagnosis for his cough includes allergies, his chronic history of GERD, or his CHF. His weakness and drowsiness could be due to the cough and cold medications as many of the medications included drowsing ingredients. Also could be due to his EF of 20%. Spoke to Dr. Willingham about patient and his work-up today. I do not feel there is any reason to bring patient into the hospital at this time. Dr. Willingham agrees. Recommended we increase his Lasix to 40 mg for the next 3 days due to the bump in his BNP. We will take patient off all of his cough and cold medications and they can try treating with nondrowsy Claritin, Zyrtec, etc. recommend they follow-up promptly with his PCP or foam rubber molder next week. Strict return to ED precautions given. Lab Data: Labs: Lab Results 09/03/19 09/03/19 09/03/19 Range/Units 15:03 15:03 15:03 WBC 10.7 H (4.0-10.0) 10^3/ uL RBC 5.10 (4.1-5.3) 10^6/u L Hgb 12.9 (11.7-16.6) g/dL Hct 41.8 L (42.0-52.0) % MCV 82.0 (80-94) fL MCH 25.3 L (28.0-34.0) pg MCHC 30.9 (30.0-36.0) g/dL RDW 16.3 H (12.1-15.1) % Plt Count 355 (130-400) 10^3/c mm MPV 9.5 (7.4-10.4) fL Neut % (Auto) 64.0 % Lymph % (Auto) 16.1 % [place] % (Auto) 13.5 % Eos % (Auto) 5.4 % Baso % (Auto) 0.5 % Neut # (Auto) 6.8 (1.8-7.7) 10^3/u L Lymph # (Auto) 1.7 (0.8-4.8) 10^3/u L [place] # (Auto) 1.4 H (0.2-0.9) 10^3/u L Eos # (Auto) 0.6 (0.0-0.8) 10^3/u L Baso # (Auto) 0.1 (0.0-0.1) 10^3/u L Nucleated RBC % (a uto) 0 % Nucleated RBCs # 0.0 /100WBC Sodium 131 L (136-145) mmol/L Potassium 4.9 (3.5-5.1) mmol/L Chloride 92 L (98-107) mmol/L Carbon Dioxide 26 (22-29) mmol/L Anion Gap 17.9 (5-19) BUN 38 H (8-23) mg/dL Creatinine 1.7 H (0.7-1.2) mg/dL Glucose 286 H (65-115) mg/dL Calculated Osmolal ity 280 L (285-295) mOsm/k g Lactate (0.5-2.2) mmol/L Calcium 9.8 (8.5-10.5) mg/dL Magnesium (1.7-2.3) mg/dL Total Bilirubin 0.7 (0.15-1.2) mg/dL AST 35 (0-40) U/L ALT 32 (0-41) U/L Alkaline Phosphata se 141 H (40-130) IU/L Troponin T Baselin e 80 H (0-15) ng/mL Troponin T 120 Min [place] (0-15) ng/mL Delta Troponin T (0-10) ABS# NT-Pro-B Natriuret Pep 52716 H (0-450) pg/mL Total Protein 7.2 (6.6-8.7) g/dL Albumin 3.8 (3.5-5.2) g/dL Globulin 3.4 (1.3-4.6) g/dL Urine Color (Yellow) Urine Appearance (CLEAR) Urine pH (5-7) Ur Specific Gravit y (1.005-1.030) Urine Protein (Negative) Urine Glucose (UA) (Normal) Urine Ketones (Negative) Urine Blood (Negative) Urine Nitrate (Negative) Urine Bilirubin (NEGATIVE) Urine Urobilinogen (Negative) mg/dL Ur Leukocyte Natalie ase (Negative) Serum Ketones (Negative) 09/03/19 09/03/19 09/03/19 Range/Units 15:03 15:03 15:45 WBC (4.0-10.0) 10^3/ uL RBC (4.1-5.3) 10^6/u L Hgb (11.7-16.6) g/dL Hct (42.0-52.0) % MCV (80-94) fL MCH (28.0-34.0) pg MCHC (30.0-36.0) g/dL RDW (12.1-15.1) % Plt Count (130-400) 10^3/c mm MPV (7.4-10.4) fL Neut % (Auto) % Lymph % (Auto) % [place] % (Auto) % Eos % (Auto) % Baso % (Auto) % Neut # (Auto) (1.8-7.7) 10^3/u L Lymph # (Auto) (0.8-4.8) 10^3/u L [place] # (Auto) (0.2-0.9) 10^3/u L Eos # (Auto) (0.0-0.8) 10^3/u L Baso # (Auto) (0.0-0.1) 10^3/u L Nucleated RBC % (a uto) % Nucleated RBCs # /100WBC Sodium (136-145) mmol/L Potassium (3.5-5.1) mmol/L Chloride (98-107) mmol/L Carbon Dioxide (22-29) mmol/L Anion Gap (5-19) BUN (8-23) mg/dL Creatinine (0.7-1.2) mg/dL Glucose (65-115) mg/dL Calculated Osmolal ity (285-295) mOsm/k g Lactate (0.5-2.2) mmol/L Calcium (8.5-10.5) mg/dL Magnesium 2.2 (1.7-2.3) mg/dL Total Bilirubin (0.15-1.2) mg/dL AST (0-40) U/L ALT (0-41) U/L Alkaline Phosphata se (40-130) IU/L Troponin T Baselin e (0-15) ng/mL Troponin T 120 Min [place] (0-15) ng/mL Delta Troponin T (0-10) ABS# NT-Pro-B Natriuret Pep (0-450) pg/mL Total Protein (6.6-8.7) g/dL Albumin (3.5-5.2) g/dL Globulin (1.3-4.6) g/dL Urine Color Yellow (Yellow) Urine Appearance Clear (CLEAR) Urine pH 5 (5-7) Ur Specific Gravit y 1.015 (1.005-1.030) Urine Protein Neg (Negative) Urine Glucose (UA) Norm (Normal) Urine Ketones Negative (Negative) Urine Blood Neg (Negative) Urine Nitrate Negative (Negative) Urine Bilirubin Neg (NEGATIVE) Urine Urobilinogen Norm (Negative) mg/dL Ur Leukocyte Natalie ase Negative (Negative) Serum Ketones Negative (Negative) 09/03/19 09/03/19 Range/Units 16:15 17:02 WBC (4.0-10.0) 10^3/ uL RBC (4.1-5.3) 10^6/u L Hgb (11.7-16.6) g/dL Hct (42.0-52.0) % MCV (80-94) fL MCH (28.0-34.0) pg MCHC (30.0-36.0) g/dL RDW (12.1-15.1) % Plt Count (130-400) 10^3/c mm MPV (7.4-10.4) fL Neut % (Auto) % Lymph % (Auto) % [place] % (Auto) % Eos % (Auto) % Baso % (Auto) % Neut # (Auto) (1.8-7.7) 10^3/u L Lymph # (Auto) (0.8-4.8) 10^3/u L [place] # (Auto) (0.2-0.9) 10^3/u L Eos # (Auto) (0.0-0.8) 10^3/u L Baso # (Auto) (0.0-0.1) 10^3/u L Nucleated RBC % (a uto) % Nucleated RBCs # /100WBC Sodium (136-145) mmol/L Potassium (3.5-5.1) mmol/L Chloride (98-107) mmol/L Carbon Dioxide (22-29) mmol/L Anion Gap (5-19) BUN (8-23) mg/dL Creatinine (0.7-1.2) mg/dL Glucose (65-115) mg/dL Calculated Osmolal ity (285-295) mOsm/k g Lactate 1.9 (0.5-2.2) mmol/L Calcium (8.5-10.5) mg/dL Magnesium (1.7-2.3) mg/dL Total Bilirubin (0.15-1.2) mg/dL AST (0-40) U/L ALT (0-41) U/L Alkaline Phosphata se (40-130) IU/L Troponin T Baselin e (0-15) ng/mL Troponin T 120 Min [place] 72.90 H (0-15) ng/mL Delta Troponin T -7.10 L (0-10) ABS# NT-Pro-B Natriuret Pep (0-450) pg/mL Total Protein (6.6-8.7) g/dL Albumin (3.5-5.2) g/dL Globulin (1.3-4.6) g/dL Urine Color (Yellow) Urine Appearance (CLEAR) Urine pH (5-7) Ur Specific Gravit y (1.005-1.030) Urine Protein (Negative) Urine Glucose (UA) (Normal) Urine Ketones (Negative) Urine Blood (Negative) Urine Nitrate (Negative) Urine Bilirubin (NEGATIVE) Urine Urobilinogen (Negative) mg/dL Ur Leukocyte Natalie ase (Negative) Serum Ketones (Negative) Imaging Data^: CXR: Radiologist's impression: [address] [address] XRay Report Signed Patient: Isaiah Granger Unit #: [id number] : [id number] Age/Sex: 79 / M ADM Date: 09/03/19 Loc: ER Room/Bed: Attending Dr: Ordering Provider/Ordering MD: Chioma Toure Date of Service: 09/03/19 Procedure(s): XR chest 1V portable [id number] Accession Number(s): [id number] Report Number: [id number] WS: [id number] Portable AP upright chest, 09/03/2019 Clinical Data: cough/congestion Comparison: PA and lateral chest, 08/31/2019. Findings: No nodules, masses or effusions are seen. The heart is enlarged. The pulmonary vascularity is not increased. No pneumonia or pneumothorax is seen. The aortic arch and descending aorta show tortuosity XR/XR chest 1V portable [id number] Impression: Cardiomegaly and atherosclerosis. Dictated By: Poly Hudson MD Signed By: Poly Hudson MD Signed Date/Time: 09/03/191556 DD/ 54 Discharge Plan Discharge Patient Disposition: Home, Self-Care Clinical Impression: CHF (congestive heart failure) Qualifiers: Heart failure type: unspecified Heart failure chronicity: acute Qualified Code(s): I50.9 - Heart failure, unspecified Condition: Stable Prescriptions: No Action aspirin [Adult Low Dose Aspirin] 81 mg tablet,delayed release (DR/EC) 81 mg PO DAILY RF: 0 omega-3 fatty acids-vitamin E 1,000 mg capsule 1,000 mg PO DAILY RF: 0 omeprazole 40 mg capsule,delayed release(DR/EC) 40 mg PO DAILY RF: 0 potassium chloride 10 mEq tablet extended release 10 meq PO DAILY Qty: 90 RF: 0 furosemide 40 mg tablet 20 mg PO DAILY@0800 RF: 0 promethazine-DM 6.25-15 mg/5 mL syrup 5 ml PO Q6H PRN (Reason: cough) Qty: 160 RF: 0 (DME) lancets 31 gauge misc See Rx Instructions .ROUTE .MEDSUPPLY Qty: 100 RF: 3 [id number]-[id number]-qqdzyvnagmpxq 12.5-5-325 mg Tablet 1 tab PO Q8H PRN (Reason: Cold Symptoms) RF: 0 krill oil 1,826-873-79-80 mg Capsule 1 cap PO DAILY RF: 0 Januvia 50 mg tablet 100 mg PO DAILY RF: 0 trazodone 50 mg Tablet 50 mg PO BEDTIME PRN (Reason: Insomnia) Qty: 30 RF: 0 carvedilol 3.125 mg Tablet 3.125 mg PO Q12H Qty: 60 RF: 0 atorvastatin [Lipitor] 40 mg tablet 40 mg PO DAILY Qty: 30 RF: 0 Discharge Orders: Discharge Order (Routine); Ordered 09/03/19 Ordered By: Chioma Toure Referrals: Christen Abreu MD [Family Provider] - Julisa Chilel MD [Primary Care Provider] - Activity Restrictions/Additional Instructions: INCREASE LASIX TO 40MG FOR THE NEXT THREE DAYS. YOU MAY TRY TRIAL OF ALLERGY MEDS DISCUSSED. FOLLOW UP WITH PCP OR CARDIOLOGY NEXT WEEK FOR RE-EVALUATION. MAY RETURN TO ED FOR ANY CONCERNS YOU MAY HAVE. Discharge Date/Time: 09/03/19 18:50 Coding Level of Care Code ED Cobol Application Developer for Chg Fwd Exam Comprehensive Documented by User: Elie Willingham DO 09/05/19 21:26 HPI - General Adult General: Chief complaint: General Medical Stated complaint: fall/weakness Time Seen by Provider: 09/03/19 14:51 PFSH ED PFSH: Social History Smoking and tobacco status: never smoked Course ED course: Discussed with Chioma Toure midlevel chart reviewed agree with assessment and plan. Vital Signs: Vital signs: Vital Signs Temperature 98.4 F 09/03/19 18:52 Pulse Rate 60 09/03/19 18:52 Respiratory Rate 16 09/03/19 18:52 Blood Pressure 108/61 09/03/19 18:52 Pulse Oximetry 95 09/03/19 18:52 MDM - General Adult Lab Data: Labs: Lab Results 09/03/19 09/03/19 09/03/19 Range/Units 15:03 15:03 15:03 WBC 10.7 H (4.0-10.0) 10^3/ uL RBC 5.10 (4.1-5.3) 10^6/u L Hgb 12.9 (11.7-16.6) g/dL Hct 41.8 L (42.0-52.0) % MCV 82.0 (80-94) fL MCH 25.3 L (28.0-34.0) pg MCHC 30.9 (30.0-36.0) g/dL RDW 16.3 H (12.1-15.1) % Plt Count 355 (130-400) 10^3/c mm MPV 9.5 (7.4-10.4) fL Neut % (Auto) 64.0 % Lymph % (Auto) 16.1 % [place] % (Auto) 13.5 % Eos % (Auto) 5.4 % Baso % (Auto) 0.5 % Neut # (Auto) 6.8 (1.8-7.7) 10^3/u L Lymph # (Auto) 1.7 (0.8-4.8) 10^3/u L [place] # (Auto) 1.4 H (0.2-0.9) 10^3/u L Eos # (Auto) 0.6 (0.0-0.8) 10^3/u L Baso # (Auto) 0.1 (0.0-0.1) 10^3/u L Nucleated RBC % (a uto) 0 % Nucleated RBCs # 0.0 /100WBC Sodium 131 L (136-145) mmol/L Potassium 4.9 (3.5-5.1) mmol/L Chloride 92 L (98-107) mmol/L Carbon Dioxide 26 (22-29) mmol/L Anion Gap 17.9 (5-19) BUN 38 H (8-23) mg/dL Creatinine 1.7 H (0.7-1.2) mg/dL Glucose 286 H (65-115) mg/dL Calculated Osmolal ity 280 L (285-295) mOsm/k g Lactate (0.5-2.2) mmol/L Calcium 9.8 (8.5-10.5) mg/dL Magnesium (1.7-2.3) mg/dL Total Bilirubin 0.7 (0.15-1.2) mg/dL AST 35 (0-40) U/L ALT 32 (0-41) U/L Alkaline Phosphata se 141 H (40-130) IU/L Troponin T Baselin e 80 H (0-15) ng/mL Troponin T 120 Min [place] (0-15) ng/mL Delta Troponin T (0-10) ABS# NT-Pro-B Natriuret Pep 76797 H (0-450) pg/mL Total Protein 7.2 (6.6-8.7) g/dL Albumin 3.8 (3.5-5.2) g/dL Globulin 3.4 (1.3-4.6) g/dL Urine Color (Yellow) Urine Appearance (CLEAR) Urine pH (5-7) Ur Specific Gravit y (1.005-1.030) Urine Protein (Negative) Urine Glucose (UA) (Normal) Urine Ketones (Negative) Urine Blood (Negative) Urine Nitrate (Negative) Urine Bilirubin (NEGATIVE) Urine Urobilinogen (Negative) mg/dL Ur Leukocyte Natalie ase (Negative) Serum Ketones (Negative) 09/03/19 09/03/19 09/03/19 Range/Units 15:03 15:03 15:45 WBC (4.0-10.0) 10^3/ uL RBC (4.1-5.3) 10^6/u L Hgb (11.7-16.6) g/dL Hct (42.0-52.0) % MCV (80-94) fL MCH (28.0-34.0) pg MCHC (30.0-36.0) g/dL RDW (12.1-15.1) % Plt Count (130-400) 10^3/c mm MPV (7.4-10.4) fL Neut % (Auto) % Lymph % (Auto) % [place] % (Auto) % Eos % (Auto) % Baso % (Auto) % Neut # (Auto) (1.8-7.7) 10^3/u L Lymph # (Auto) (0.8-4.8) 10^3/u L [place] # (Auto) (0.2-0.9) 10^3/u L Eos # (Auto) (0.0-0.8) 10^3/u L Baso # (Auto) (0.0-0.1) 10^3/u L Nucleated RBC % (a uto) % Nucleated RBCs # /100WBC Sodium (136-145) mmol/L Potassium (3.5-5.1) mmol/L Chloride (98-107) mmol/L Carbon Dioxide (22-29) mmol/L Anion Gap (5-19) BUN (8-23) mg/dL Creatinine (0.7-1.2) mg/dL Glucose (65-115) mg/dL Calculated Osmolal ity (285-295) mOsm/k g Lactate (0.5-2.2) mmol/L Calcium (8.5-10.5) mg/dL Magnesium 2.2 (1.7-2.3) mg/dL Total Bilirubin (0.15-1.2) mg/dL AST (0-40) U/L ALT (0-41) U/L Alkaline Phosphata se (40-130) IU/L Troponin T Baselin e (0-15) ng/mL Troponin T 120 Min [place] (0-15) ng/mL Delta Troponin T (0-10) ABS# NT-Pro-B Natriuret Pep (0-450) pg/mL Total Protein (6.6-8.7) g/dL Albumin (3.5-5.2) g/dL Globulin (1.3-4.6) g/dL Urine Color Yellow (Yellow) Urine Appearance Clear (CLEAR) Urine pH 5 (5-7) Ur Specific Gravit y 1.015 (1.005-1.030) Urine Protein Neg (Negative) Urine Glucose (UA) Norm (Normal) Urine Ketones Negative (Negative) Urine Blood Neg (Negative) Urine Nitrate Negative (Negative) Urine Bilirubin Neg (NEGATIVE) Urine Urobilinogen Norm (Negative) mg/dL Ur Leukocyte Natalie ase Negative (Negative) Serum Ketones Negative (Negative) 09/03/19 09/03/19 Range/Units 16:15 17:02 WBC (4.0-10.0) 10^3/ uL RBC (4.1-5.3) 10^6/u L Hgb (11.7-16.6) g/dL Hct (42.0-52.0) % MCV (80-94) fL MCH (28.0-34.0) pg MCHC (30.0-36.0) g/dL RDW (12.1-15.1) % Plt Count (130-400) 10^3/c mm MPV (7.4-10.4) fL Neut % (Auto) % Lymph % (Auto) % [place] % (Auto) % Eos % (Auto) % Baso % (Auto) % Neut # (Auto) (1.8-7.7) 10^3/u L Lymph # (Auto) (0.8-4.8) 10^3/u L [place] # (Auto) (0.2-0.9) 10^3/u L Eos # (Auto) (0.0-0.8) 10^3/u L Baso # (Auto) (0.0-0.1) 10^3/u L Nucleated RBC % (a uto) % Nucleated RBCs # /100WBC Sodium (136-145) mmol/L Potassium (3.5-5.1) mmol/L Chloride (98-107) mmol/L Carbon Dioxide (22-29) mmol/L Anion Gap (5-19) BUN (8-23) mg/dL Creatinine (0.7-1.2) mg/dL Glucose (65-115) mg/dL Calculated Osmolal ity (285-295) mOsm/k g Lactate 1.9 (0.5-2.2) mmol/L Calcium (8.5-10.5) mg/dL Magnesium (1.7-2.3) mg/dL Total Bilirubin (0.15-1.2) mg/dL AST (0-40) U/L ALT (0-41) U/L Alkaline Phosphata se (40-130) IU/L Troponin T Baselin e (0-15) ng/mL Troponin T 120 Min [place] 72.90 H (0-15) ng/mL Delta Troponin T -7.10 L (0-10) ABS# NT-Pro-B Natriuret Pep (0-450) pg/mL Total Protein (6.6-8.7) g/dL Albumin (3.5-5.2) g/dL Globulin (1.3-4.6) g/dL Urine Color (Yellow) Urine Appearance (CLEAR) Urine pH (5-7) Ur Specific Gravit y (1.005-1.030) Urine Protein (Negative) Urine Glucose (UA) (Normal) Urine Ketones (Negative) Urine Blood (Negative) Urine Nitrate (Negative) Urine Bilirubin (NEGATIVE) Urine Urobilinogen (Negative) mg/dL Ur Leukocyte Natalie ase (Negative) Serum Ketones (Negative) Discharge Plan Discharge Patient Disposition: Home, Self-Care Clinical Impression: CHF (congestive heart failure) Qualifiers: Heart failure type: unspecified Heart failure chronicity: acute Qualified Code(s): I50.9 - Heart failure, unspecified Condition: Stable Prescriptions: No Action aspirin [Adult Low Dose Aspirin] 81 mg tablet,delayed release (DR/EC) 81 mg PO DAILY RF: 0 omega-3 fatty acids-vitamin E 1,000 mg capsule 1,000 mg PO DAILY RF: 0 omeprazole 40 mg capsule,delayed release(DR/EC) 40 mg PO DAILY RF: 0 potassium chloride 10 mEq tablet extended release 10 meq PO DAILY Qty: 90 RF: 0 furosemide 40 mg tablet 20 mg PO DAILY@0800 RF: 0 promethazine-DM 6.25-15 mg/5 mL syrup 5 ml PO Q6H PRN (Reason: cough) Qty: 160 RF: 0 (DME) lancets 31 gauge misc See Rx Instructions .ROUTE .MEDSUPPLY Qty: 100 RF: 3 [id number]-[id number] 12.5-5-325 mg Tablet 1 tab PO Q8H PRN (Reason: Cold Symptoms) RF: 0 krill oil 1,100-105-02-80 mg Capsule 1 cap PO DAILY RF: 0 Januvia 50 mg tablet 100 mg PO DAILY RF: 0 trazodone 50 mg Tablet 50 mg PO BEDTIME PRN (Reason: Insomnia) Qty: 30 RF: 0 carvedilol 3.125 mg Tablet 3.125 mg PO Q12H Qty: 60 RF: 0 atorvastatin [Lipitor] 40 mg tablet 40 mg PO DAILY Qty: 30 RF: 0 Discharge Orders: Discharge Order (Routine); Ordered 09/03/19 Ordered By: Chioma Toure Referrals: Christen Abreu MD [Family Provider] - Julisa Chilel MD [Primary Care Provider] - Activity Restrictions/Additional Instructions: INCREASE LASIX TO 40MG FOR THE NEXT THREE DAYS. YOU MAY TRY TRIAL OF ALLERGY MEDS DISCUSSED. FOLLOW UP WITH PCP OR CARDIOLOGY NEXT WEEK FOR RE-EVALUATION. MAY RETURN TO ED FOR ANY CONCERNS YOU MAY HAVE. Discharge Date/Time: 09/03/19 18:50 Coding Level of Care Code ED Cobol Application Developer for Laura Fwd Exam Comprehensive
[2019-09-03 16:10] LABS: Add Urine Microscopic? NO
[2019-09-03 16:15] LABS: Urine Appearance Clear (CLEAR); Urine Color Yellow (Yellow); pH Urine 5 (5-7)
[2019-09-03 16:15] LABS: Ketone (Acetest) Serum Negative (Negative)
[2019-09-03 16:16] LABS: Bilirubin Urine Neg (NEGATIVE); Blood Urine Neg (Negative); Glucose Urine UA Norm (Normal); Ketones Urine Negative (Negative); Leukocyte Esterase Urine Negative (Negative); Nitrate Urine Negative (Negative); Protein Urine Neg (Negative); Specific Gravity, Urine 1.015 (1.005-1.030); Urobilinogen Urine Norm (Negative)
[2019-09-03] MEDS: sodium chloride 0.9% 1,000 ML 125 ML IV (16:18)
[2019-09-03 16:19] LABS: Magnesium 2.2 mg/dL (1.7-2.3)
[2019-09-03 16:20] LABS: Troponin(5th) Baseline 80 ng/mL (0-15)
[2019-09-03 16:42] LABS: Lactate (Lactic Acid level) 1.9 mmol/L (0.5-2.2)
--- NOTE | 2019-09-03 17:26 | PC.NURSE ---
Ambulated patient in hallway with a walker. Patient did very well.
--- NOTE | 2019-09-06 10:52 | DCPLANNER ---
property disposal manager had message to schedule a follow up appointment for patient with [facility]. property disposal manager called [facility], spoke with Vernell, gave clinic patients information. property disposal manager was told that patients information would be reviewed. Clinic will call field nurse case manager with appointment information.
--- NOTE | 2019-09-07 11:28 | DCPLANNER ---
Patient has a follow up appointment scheduled for Saturday, September 28, 2019 at 9:15 with [facility]. Patient is aware of appointment.
--- NOTE | 2019-11-09 15:49 | DCPLANNER ---
Patient did attend appointment scheduled for 09.28.19 with [facility].
== END 2019-09-03 18:50 | disposition home or self-care (01) ==
PROVIDERS: Emergency Provider Physician Assistant; Family Provider Family Medicine; PCP Family Medicine
DX: I50.9 Heart failure, unspecified (principal)
CPT/HCPCS: 12345; 36415; 71045; 80053; 81003; 82009; 83605; 83735; 83880; 84484; 85025; 93005; 96360; 96361; 99282; 99284; A9270; J7030

== ENCOUNTER → 2019-10-07 11:14 | Outpatient (BNVA) | payer MEDICARE, SELFPAY | PROVIDERS: Family Provider Family Medicine; PCP Family Medicine; Visit Provider Nurse Practitioner Family | DX: I50.21 Acute systolic (congestive) heart failure (principal) | CPT/HCPCS: 80048; 83735; 83880 ==

== ENCOUNTER 2019-12-15 10:19 | Outpatient (CLI) | payer MEDICARE, SELFPAY ==
--- NOTE | 2019-12-15 10:15 | USCV_ITS ---
Elkin Isaiah Age: 79 Gender: M : 1940 Exam Date: 12/15/2019 10:36 Ordering Phys: Lilo Tovar MD Technologist: Neema Iqbal Exam Location: [facility] [place] Indication: CHF BP: / HR: 54 Rhythm: Sinus Technical Quality: Good MEASUREMENTS (Male / Female) Normal Values 2D ECHO LV Diastolic Diameter PLAX 5.6 cm 4.2 - 5.9 / 3.9 - 5.3 cm LV Systolic Diameter PLAX 5.2 cm IVS Diastolic Thickness 1.0 cm 0.6 - 1.0 / 0.6 - 0.9 cm IVS Systolic Thickness 1.2 cm LVPW Diastolic Thickness 1.2 cm 0.6 - 1.0 / 0.6 - 0.9 cm LVPW Systolic Thickness 1.0 cm LVOT Diameter 2.1 cm LV Ejection Fraction 2D Teich 14.4 % LV Ejection Fraction MOD 2C 53.1 % LV Ejection Fraction 2C AL 53.1 % LA Diameter 3.5 cm LA Width 4.2 cm LA Height 4.8 cm RA Width 3.2 cm RA Height 4.2 cm M-MODE LV Diastolic Diameter MM 7.2 cm 4.2 - 5.9 / 3.9 - 5.3 cm LV Systolic Diameter MM 5.5 cm LV Ejection Fraction MM Teich 47.1 % IVS Diastolic Thickness MM 0.9 cm 0.6 - 1.0 / 0.6 - 0.9 cm IVS Systolic Thickness MM 0.9 cm LVPW Diastolic Thickness MM 1.1 cm 0.6 - 1.0 / 0.6 - 0.9 cm LVPW Systolic Thickness MM 1.2 cm Aortic Annulus Diameter 3.6 cm LA Ao Ratio MM 0.9 MV E Point Septal Separation 1.7 cm DOPPLER AV Peak Velocity 297.0 cm/s LVOT Peak Velocity 80.0 cm/s AV Area Cont Eq vti 0.9 cm squared AV Area Cont Eq pk 0.9 cm squared FINDINGS Left Ventricle Mildly dilated left ventricular cavity size and mildly increased left ventricular wall thickness. Moderately decreased left ventricular systolic function. Left ventricular ejection fraction is estimated at 30-35% visually. Moderate hypokinesis with relative sparing of lateral wall. Right Ventricle Normal right ventricular size and systolic function. Right Atrium Normal right atrial size. Right atrial pressure estimated at 8 mmHg. Left Atrium Mildly increased left atrial size. Mitral Valve Moderate mitral annular calcification. Moderately thickened mitral valve. Aortic Valve Markedly thickened and calcified aortic valve. Moderate aortic valve stenosis, peak velocity 3 m/s, peak gradient 35 mmHg, mean gradient 19.8 mmHg, [place] 0.9 cm squared. Trace aortic valve regurgitation. Tricuspid Valve Structurally normal tricuspid valve. Pulmonic Valve Structurally normal pulmonic valve. Pericardium No pericardial effusion. Aorta Normal size aortic root and proximal ascending aorta. CONCLUSIONS 1. This is a limited study. 2. Mildly dilated left ventricular cavity size. Moderately decreased left ventricular systolic function. Left ventricular ejection fraction is estimated at 30-35%. Moderate hypokinesis with relative sparing of lateral wall. 3. Mildly increased left atrial size. 4. Moderate aortic valve stenosis, peak velocity 3 m/s, peak gradient 35 mmHg, mean gradient 19.8 mmHg, [place] 0.9 cm squared. 5. When compared to previous echocardiogram dated, 08/13/2019, left ventricular systolic function has improved from 20% to 30- 35% now. Lilo Tovar MD (Electronically Signed) Final Date: 20 December 2019 13:41 S
== END 2019-12-15 10:20 | disposition home or self-care (01) ==
LOC: RAD 10:25
PROVIDERS: PCP Family Medicine; Visit Provider Internal Medicine Cardiovascular Disease
DX: I50.21 Acute systolic (congestive) heart failure (principal); I35.0 Nonrheumatic aortic (valve) stenosis; I51.7 Cardiomegaly
CPT/HCPCS: 93308; C8924

== ENCOUNTER → 2019-12-29 16:51 | Outpatient (BNVA) | payer MEDICARE, SELFPAY | PROVIDERS: PCP Family Medicine; Visit Provider Family Medicine | DX: E78.5 Hyperlipidemia, unspecified (principal); E11.21 Type 2 diabetes mellitus with diabetic nephropathy; I11.0 Hypertensive heart disease with heart failure; I50.21 Acute systolic (congestive) heart failure; K21.9 Gastro-esophageal reflux disease without esophagitis | CPT/HCPCS: 80053; 80061; 83036; 84443; 85025 ==